=== PATIENT | female | born 1975 | race Caucasian/White ===

== ENCOUNTER 2023-04-15 19:38 | Emergency (ER) | payer MEDICAID, SELFPAY ==
[2023-04-15] VITALS (30 sets, daily range): BP systolic 102–115; BP diastolic 62–75; PULSE 70–86; RESP 12–24; TEMP 36.5; O2SAT 95–98; BMI 27.2
--- NOTE | 2023-04-15 20:00 | ED.GENADUL1 ---
HPI - General Adult General Chief complaint: Headache Stated complaint: LOW BP Time Seen by Provider: 04/15/23 19:54 Source: patient Mode of arrival: walk-in History of Present Illness HPI narrative: states she has not felt well for past 2 months. Episodes of dizziness(room spinning) associated with vomiting. Feeling light headed. No chest pain or dyspnea. Has arthritis. Today right adventism headache improved after motrin but has returned. No vomiting or fever. No neck pain or extremity weakness. States her BP has been low at home. States it was 99 top number. She takes Paxil and hydroxyzine Onset (ago): month(s) Related Data Home Medications Medication Instructions Recorded Confirmed hydroxyzine pamoate 25 mg capsule 25 mg PO DAILY PRN anxiety 04/15/23 04/15/23 medroxyprogesterone 10 mg tablet 10 mg PO DAILY 04/15/23 04/15/23 paroxetine HCl 30 mg tablet 30 mg PO DAILY 04/15/23 04/15/23 Allergies Allergy/AdvReac Type Severity Reaction Status Date / Time No Known Drug Allergies Allergy Verified 04/15/23 19:47 Review of Systems ROS Status of ROS 10 or more systems reviewed and unremarkable except as noted in history and below Exam Constitutional Vital Signs, click to edit/add: Last Vital Signs Temp 97.7 F 04/15/23 19:42 Pulse 72 04/15/23 21:04 Resp 16 04/15/23 20:52 BP 105/62 04/15/23 21:04 Pulse Ox 98 04/15/23 20:24 O2 Del Method Room Air 04/15/23 19:42 Common normals: no apparent distress, average body habitus, oriented x3, no limitations, healthy appearing, alert and well nourished Eye Common normals: PERRL, EOMs intact bilaterally and conjunctivae normal Respiratory Common normals: normal respiratory effort, no retractions, no use of accessory muscles and clear to auscultation bilaterally Cardio Common normals: regular rate, regular rhythm, S1 normal heart sound and S2 normal heart sound GI Common normals: Normal to inspection, nondistended, normoactive bowel sounds present, soft to palpation and non-tender Extremity Common normals: normal to inspection and full ROM Neuro Common normals: oriented x3, CN's II-XII intact bilaterally, moves all extremities, no focal motor deficits and no sensory deficits noted Psych Appearance: grossly normal Course Vital Signs Vital signs: Vital Signs Temperature 97.7 F 04/15/23 19:42 Pulse Rate 86 04/15/23 19:42 Respiratory Rate 14 04/15/23 19:42 Blood Pressure 115/65 04/15/23 19:42 Pulse Oximetry 97 04/15/23 19:42 Oxygen Delivery Method Room Air 04/15/23 19:42 Temperature 97.7 F 04/15/23 19:42 Pulse Rate 72 04/15/23 21:04 Respiratory Rate 16 04/15/23 20:52 Blood Pressure 105/62 04/15/23 21:04 Pulse Oximetry 98 04/15/23 20:24 Oxygen Delivery Method Room Air 04/15/23 19:42 Medical Decision Making MDM Narrative Medical decision making narrative: patient ill past couple of months. Did not feel right. described episode few weeks ago of dizziness with room spinning and vomiting. Tonight states BP 99 systolic at home. BP normal here. CT brain unremarkable. labs reveal mild hypothyroidism and pyuria. Patient given dose of Rocephin and prescribed Keflex. Headache treated with benadryl and reglan and nearly gone prior to discharge. Discharge home and advised to follow up with PCP Lab Data Labs: Lab Results 04/15/23 04/15/23 Range/Units 20:25 20:28 WBC 11.1 H (4.0-11.0) 10^3/uL RBC 4.59 (4.20-5.40) 10^6/uL Hgb 13.8 (12.0-16.0) g/dL Hct 42.9 (36.0-48.0) % MCV 93.5 (81.0-99.0) fL MCH 30.1 (26.7-34.0) pg MCHC 32.2 (29.9-35.2) g/dL RDW 12.7 (11.0-15.0) % Plt Count 363 (150-450) 10^3/uL MPV 10.0 (9.5-13.5) fL Neut % (Auto) 41.6 L (43.0-75.0) % Lymph % (Auto) 45.3 (20.5-60.0) % [place] % (Auto) 8.8 (1.7-12.0) % Eos % (Auto) 2.6 (0.9-7.0) % Baso % (Auto) 0.8 (0.2-2.0) % Neut # (Auto) 4.6 (1.4-6.5) 10^3/uL Lymph # (Auto) 5.0 H (1.2-3.8) 10^3/uL [place] # (Auto) 1.0 H (0.3-0.8) 10^3/uL Eos # (Auto) 0.3 (0.0-0.7) 10^3/uL Baso # (Auto) 0.1 (0.0-0.1) 10^3/uL Abs Immat Gran (auto) 0.10 H (0.00-0.03) 10^3/uL Imm/Tot Granulo (auto) 0.9 H (0.0-0.5) % D-Dimer 0.45 (<=0.59) mg/L FEU Sodium 142 (136-145) mmol/L Potassium 3.9 (3.5-5.1) mmol/L Chloride 105 (98-107) mmol/L Carbon Dioxide 30.2 (21.0-32.0) mmol/L Anion Gap 10.7 BUN 21.0 H (7.0-18.0) mg/dL Creatinine 1.12 H (0.55-1.02) mg/dL Est GFR ( Amer) >60 (>=60) Est GFR (Non-Af Amer) 52 L (>=60) BUN/Creatinine Ratio 18.8 Glucose 94 (74-106) mg/dL Lactate 1.2 (0.4-2.0) mmol/L Calcium 8.9 (8.5-10.1) mg/dL Magnesium 2.2 (1.8-2.4) mg/dL Total Bilirubin 0.2 (0.2-1.0) mg/dL AST 20 (15-37) U/L ALT 28 (14-59) U/L Alkaline Phosphatase 78 (46-116) U/L Troponin I High Sens <4.0 L (4.0-51.3) pg/mL NT-Pro-B Natriuret Pep 26.0 (<=450.0) pg/mL Total Protein 6.9 (6.4-8.2) g/dL Albumin 3.5 (3.4-5.0) g/dL Globulin 3.4 g/dL Albumin/Globulin Ratio 1.0 TSH 2.408 (0.358-3.740) uIU/mL Free T4 0.74 L (0.76-1.46) ng/dL Urine Color Lt. yellow (YELLOW) Urine Clarity Clear (CLEAR) Urine pH 6.0 (5.0-9.0) Ur Specific [place] 1.025 (1.005-1.025) Urine Protein Negative (NEG/TRACE) mg/dL Urine Glucose (UA) Negative (NEGATIVE) mg/dL Urine Ketones Negative (NEGATIVE) mg/dL Urine Occult Blood Small A (NEGATIVE) Urine Nitrite Positive A (NEGATIVE) Urine Bilirubin Negative (NEGATIVE) Urine Urobilinogen 0.2 (0.2-1.0) EU/dL Ur Leukocyte Esterase Trace A (NEGATIVE) Urine RBC 2-5 A (0-2) #/HPF Urine WBC 5-10 A (NONE SEEN) #/HPF Ur Squamous Epith Cells Few A (NONE/RARE) #/LPF Urine Crystals None seen (None Seen) #/HPF Urine Bacteria Large A (NONE SEEN) #/HPF Urine Casts None seen (NONE SEEN) #/LPF Urine Mucus Small A (NONE SEEN) Ur Culture Indicated? Yes Discharge Plan Discharge Chief Complaint: Headache Clinical Impression: UTI (urinary tract infection), Headache, Hypothyroid Prescriptions / Home Meds: No Action hydroxyzine pamoate 25 mg capsule 25 mg PO DAILY PRN (Reason: anxiety) medroxyprogesterone 10 mg tablet 10 mg PO DAILY paroxetine HCl 30 mg tablet 30 mg PO DAILY Instructions: Urinary Tract Infection in Women (ED), Hypothyroidism (ED), Acute Headache (ED) Additional Instructions: follow up with physician name provided by nursing Referrals: Physician,Non-Staff, MD [Primary Care Provider] - 1 week
--- NOTE | 2023-04-15 20:03 | ECG_ITS ---
[facility] Test Date: 2023-04-15 Pat Name: DESHAUN BECKFORD Department: Room: - Gender: Female Supervisor Tower: : 1975 Requested By: [id number] Order Number: [id number] Reading MD: MARY KATE Measurements Intervals [place] Rate: 68 P: 34 CT: 160 QRS: 82 QRSD: 74 T: 71 QT: 392 QTc: 409 Interpretive Statements 1100 Sinus rhythm 9110 normal ECG No previous ECG available for comparison Electronically Signed On 04-16-2023 20:00:05 EST by MARY KATE
--- NOTE | 2023-04-15 20:03 | XR_ITS ---
The [place] [id number] Patient Name: DESHAUN BECKFORD MRN: [id number] date: 1975 Sex: F Assigned Patient Location: ER Current Patient Location: Accession/Order Number: [id number] Exam Date: 04/15/2023 20:20 Report Date: 04/15/2023 20:46 At the request of: JEFFERSON DUENAS Procedure: XR chest 1V EXAM: XR chest 1V TECHNIQUE: Single AP view chest HISTORY: weakness COMPARISON: 02/19/2016 FINDINGS: The heart and mediastinum are unremarkable. The lung hankins are clear of any acute infiltrate, effusion or mass. No acute bony abnormality. XR/XR chest 1V IMPRESSION: No acute pulmonary disease. Electronically authenticated by: GLENDY CASTAÑEDA Date: 04/15/2023 20:46
--- NOTE | 2023-04-15 20:05 | CT_ITS ---
The [address] [address] Patient Name: DESHAUN BECKFORD MRN: [id number] date: 1975 Sex: F Assigned Patient Location: ER Current Patient Location: Accession/Order Number: [id number] Exam Date: 04/15/2023 20:20 Report Date: 04/16/2023 05:50 At the request of: JEFFERSON DUENAS Procedure: CT head/brain wo con EXAM: CT head/brain wo con HISTORY: headache and hypotension. Dizziness. Lightheadedness. COMPARISON: None. TECHNIQUE: Nonenhanced CT imaging of the head was performed with sagittal and coronal reconstructions. FINDINGS: No intracranial hemorrhage, edema, mass effect or midline shift is seen. The brain parenchyma, ventricles and extra-axial CSF spaces appear within normal limits. The calvarium and imaged facial bones are intact. The paranasal sinuses and mastoid air cells appear clear. CT/CT head/brain wo con IMPRESSION: No acute intracranial abnormality. Electronically authenticated by: GULILERMO MERCEDES Date: 04/16/2023 05:50
[2023-04-15 20:38] LABS: Basophils Absolute Auto 0.1 10^3/uL (0.0-0.1); Basophils Percent Auto 0.8 % (0.2-2.0); Eosinophils Absolute Auto 0.3 10^3/uL (0.0-0.7); Eosinophils Percent Auto 2.6 % (0.9-7.0); Hematocrit 42.9 % (36.0-48.0); Hemoglobin 13.8 g/dL (12.0-16.0); Immature Granulocytes Pct Auto 0.9 % (0.0-0.5); Lymphocytes Percent Auto 45.3 % (20.5-60.0); Mean Corpuscular HGB Conc 32.2 g/dL (29.9-35.2); Mean Corpuscular Hemoglobin 30.1 pg (26.7-34.0); Mean Corpuscular Volume 93.5 fL (81.0-99.0); Monocytes Percent Auto 8.8 % (1.7-12.0); Neutrophils Absolute Auto 4.6 10^3/uL (1.4-6.5); Neutrophils Percent Auto 41.6 % (43.0-75.0); Platelet Count 363 10^3/uL (150-450); Red Blood Count 4.59 10^6/uL (4.20-5.40); Red Cell Distribution Width 12.7 % (11.0-15.0); White Blood Count 11.1 10^3/uL (4.0-11.0)
[2023-04-15 20:39] LABS: Bilirubin Urine NEGATIVE (NEGATIVE); Blood Urine SMALL (NEGATIVE); Clarity Urine CLEAR (CLEAR); Color Urine LT. YELLOW (YELLOW); Glucose Urine UA NEGATIVE (NEGATIVE); Ketones Urine NEGATIVE (NEGATIVE); Leukocyte Esterase Urine TRACE (NEGATIVE); Nitrite Urine POSITIVE (NEGATIVE); Protein Urine NEGATIVE (NEG/TRACE); Specific Gravity Urine 1.025 (1.005-1.025); Urobilinogen Urine 0.2 EU/dL (0.2-1.0)
[2023-04-15] MEDS: 0.9 % SODIUM CHLORIDE 1,000 ML 999 ML IV (20:43)
[2023-04-15 20:46] LABS: Urine Microscopic Indicated YES
[2023-04-15 20:49] LABS: Bacteria Urine LARGE #/HPF (NONE SEEN); Cast Seen? NONE SEEN #/LPF (NONE SEEN); Crystals Seen? None Seen #/HPF (None Seen); Mucus Urine SMALL (NONE SEEN); Squamous Epithelial Cell Urine FEW #/LPF (NONE/RARE); Urine Culture Indicated YES
[2023-04-15 20:54] LABS: D Dimer 0.45 mg/L FEU (<=0.59)
[2023-04-15 21:00] LABS: Lactate/Lactic Acid 1.2 mmol/L (0.4-2.0)
[2023-04-15 21:06] LABS: Alanine Aminotransferase 28 U/L (14-59); Albumin Level 3.5 g/dL (3.4-5.0); Alkaline Phosphatase 78 U/L (46-116); Anion Gap 10.7; Aspartate Amino Transferase 20 U/L (15-37); BUN Creatinine Ratio 18.8; Bilirubin Total 0.2 mg/dL (0.2-1.0); Calcium 8.9 mg/dL (8.5-10.1); Carbon Dioxide 30.2 mmol/L (21.0-32.0); Chloride 105 mmol/L (98-107); Estimated GFR (African America >60 (>=60); Estimated GFR (Non-African Ame 52 (>=60); Globulin 3.4 g/dL; Glucose 94 mg/dL (74-106); Magnesium 2.2 mg/dL (1.8-2.4); Potassium 3.9 mmol/L (3.5-5.1); Sodium 142 mmol/L (136-145); Thyroid Stimulating Hormone 2.408 uIU/mL (0.358-3.740); Total Protein 6.9 g/dL (6.4-8.2); Troponin I High Sensitivity <4.0 pg/mL (4.0-51.3)
[2023-04-15 21:08] LABS: Free T4 0.74 ng/dL (0.76-1.46)
[2023-04-15] MEDS: CEFTRIAXONE 1,000 MG in 0.9 % SODIUM CHLORIDE 50 ML 100 MG IV (22:34)
[2023-04-15] MEDS: METOCLOPRAMIDE HCL 10 MG/2 ML VIAL IVP (22:35)
[2023-04-15] MEDS: DIPHENHYDRAMINE HCL 50 MG/ML (1ML) VIAL IV (22:35)
== END 2023-04-15 23:35 | disposition home or self-care (01) ==
PROVIDERS: Emergency Provider Internal Medicine
DX: R51.9 Headache, unspecified (principal); N39.0 Urinary tract infection, site not specified; E03.9 Hypothyroidism, unspecified; Z79.899 Other long term (current) drug therapy
CPT/HCPCS: 36415; 70450; 71045; 80053; 81001; 83605; 83735; 83880; 84439; 84443; 84484; 85025; 85378; 87086; 87150; 87186; 93005; 96361; 96365; 96375; 99285

== ENCOUNTER 2024-05-13 19:34 | Outpatient (OUT) | payer MEDICAID, SELFPAY ==
--- OUTSIDE RECORDS SUMMARY | 2024-05-13 19:37 | XMS_ITS | CCD ---
Author Organization [facility] Inform ion Partnership [facility] Care Team Providers Care Exchange Trouble Shooter Name Role Phone MARY PERALTA Referring Unavailable MARY PERALTA Primary Care Unavailable FREDDIE HILLMAN Admitting Unavailable FREDDIE HILLMAN Attending Unavailable BRIAN SUH Unavailable Unavailable Primary Care Provider UnavailNEETA Romano Primary Care Unavailable JANY UMANZOR Attending Unavailable Jeremie Emery Attending Unavailab le Jeremie Emery Admitting Unavailab le NON STAFF Primary Care Unavailable BRYAN JONES Referring Unavailable FURLONG, BRYAN Guzman Primary Care Unavailable Lurdeslong Bryan BLAIR Primary Care Provider BRYAN JONES Attending Unavailable LURDESLONGBRYAN Primary Care Unavailable FURLOBRYAN WEBSTER Attending Unavailable FURLONGBRYAN Referring Unavailable FURLONG, BRYAN Guzman Primary Care Unavailable FURLONGBRYAN Attending Unavailable FURLONGBRYAN Primary Care Unavailable FURLONG, BRYAN Guzman Attending Unavailable FURLONGBRYAN Referring Unavailable FURLONG, BRYAN Guzman Primary Care Unavailable DONAVAN SAMS Attending Unavailable BRYAN JONES Referring Unavailable FURLONG, BRYAN Guzman Primary Care Unavailable FURLONG, BRYAN Guzman Attending Unavailable FURLONG, BRYAN Guzman Referring Unavailable FURLONG, BRYAN Guzman Primary Care Unavailable FURLONG, BRYAN Guzman Referring Unavailable FURLONG, BRYAN G Primary Care Unavailable SUGAR BASILIO Attending Unavailable NO PCP, NO PCP Primary Care Unavailable FURLOBRYAN WEBSTER Attending Unavailable FURLONGBRYAN Referring Unavailable BRYAN JONES Primary Care Unavailable DONAVAN SAMS Referring Unavailable BRYAN JONES Primary Care Unavailable Allergies Allergy Classification Reported Allergen(s) Allergy Type Date of Onset Reaction(s) Facility (9 sources) Penicillins; Translations: [PENICILLINS] Propensity to adverse reactions to drug (disorder) Hives [facility] Medications Current Medications Medication Drug Class(es) Dates Sig (Normalized) Sig (Original) acetaminophen 325 mg / HYDROcodone bitartrate 5 mg oral tablet (1 source) Opioid Agonist Start: 05-04-2023 End: 05-07-2023 HYDROcodone-acetam inophen (NORCO) 5-325 MG per tablet Indications: Pain, dental , Dental abscess , Dental caries Take 1 tablet by mouth every 6 hours as needed for Pain for up to 3 days. Intended supply: 3 days. Take lowest dose possible to manage pain Max Daily Amount: 4 tablets 12 tablet 0 05/04/2023 05/07/2023 Active 24 hr amphetamine aspartate 6.25 mg / amphetamine sulfate 6.25 mg / dextroamphetamine saccharate 6.25 mg / dextroamphetamine sulfate 6.25 mg extended release oral capsule (9 sources) Central Nervous System Stimulant Start: 05-01-2024 take 1 capsule by mouth once daily in the morning amphetamine-dextro amphetamine XR (ADDERALL XR) 25 mg 24 hr capsule Indications: Attention deficit hyperactivity disorder (ADHD), unspecified ADHD type Take 1 capsule (25 mg total) by mouth every morning. Max Daily Amount: 25 mg 30 capsule 05/01/2024 Active Start: 04-02-2024 take 1 capsule by [facility] once daily in the morning amphetamine-dextroamphetamine XR (ADDERA LL XR) 25 mg 24 hr capsule Indications: Attention deficit hyperactivity disorder (ADHD), unspecified ADHD type Take 1 capsule (25 mg total) by mouth every morning. Max Daily Amount: 25 mg 04/02/2024 Active Start: 02-01-2024 End: 04-02-2024 take 1 capsule by mouth once daily in the morning amphetamine-dextroamphetamine XR (ADDERA LL XR) 20 mg 24 hr capsule Indications: Attention deficit hyperactivity disorder (ADHD), unspecified ADHD type Take 1 capsule (20 mg total) by mouth every morning. Max Daily Amount: 20 mg 30 capsule 04/01/2024 04/02/2024 Discontinued (Dose adjustment) brexpiprazole 0.5 mg oral tablet (1 source) Atypical Antipsychotic Start: 11-28-2019 REXULTI 0.5 MG TABS tablet One tablet at night 0 11/28/2019 Active busPIRone hydrochloride 10 mg oral tablet (1 source) Start: 11-28-2019 busPIRone (BUSPAR) 10 MG tablet Take one tablet at night 0 11/28/2019 Active hydrOXYzine hydrochloride 25 mg oral tablet (6 sources) Antihistamine take 1 tablet by mouth three times daily as needed hydrOXYzine (ATARAX) 25 mg tablet Take 1 tablet (25 mg total) by mouth 3 (three) times a day as needed for itching. Active ibuprofen 800 mg oral tablet (1 source) Nonsteroidal Anti-inflammatory Drug Start: 05-04-2023 take 1 tablet by mouth every eight hours as needed for pain ibuprofen (IBU) 800 MG tablet Take 1 tablet by mouth every 8 hours as needed for Pain 21 tablet 0 05/04/2023 Active medroxyPROGESTERone acetate 5 mg oral tablet (1 source) Progestin Start: 11-14-2019 take 2 tablets by mouth once daily medroxyPROGESTERone (PROVERA) 5 MG tablet TAKE 2 TABLETS BY MOUTH EVERY DAY 0 11/14/2019 Active meloxicam 15 mg oral tablet (9 sources) Nonsteroidal Anti-inflammatory Drug Start: 05-06-2024 take 1 tablet by mouth once daily as needed for pain meloxicam (MOBIC) 15 mg tablet Take 1 tablet (15 mg total) by mouth daily as needed for pain. 30 tablet 2 05/06/2024 Active Start: 10-23-2023 End: 05-03-2024 take 1 tablet by mouth once daily as needed for pain meloxicam (MOBIC) 15 mg tablet Take 1 tablet (15 mg total) by mouth daily as needed for pain. 30 tablet 2 04/02/2024 05/03/2024 Discontinued (Reorder) Start: 12-18-2019 End: 05-04-2023 take 1 tablet by mouth once daily meloxicam (MOBIC) 7.5 MG tablet Indications: Acute hip pain, left Take 1 tablet by mouth daily 30 tablet 3 12/18/2019 05/04/2023 Discontinued (LIST CLEANUP) PARoxetine hydrochloride 30 mg oral tablet (6 sources) Serotonin Reuptake Inhibitor Start: 10-23-2023 PARoxetine (PAXIL) 3 0 mg tablet 10/23/2023 Active propranolol hydrochloride 10 mg oral tablet (6 sources) beta-Adrenergic [place] Start: 10-23-2023 End: 05-09-2024 propranoloL (INDERAL) 10 mg tablet Take 1 tablet (10 mg total) by mouth. 10/23/2023 05/09/2024 Discontinued (Patient Stopped On Own) risperiDONE 2 mg oral tablet (1 source) Atypical Antipsychotic Start: 11-23-2019 risperi DONE (RISPERDAL) 2 MG tablet Take one tablet at night 0 11/23/2019 Active triamcinolone acetonide 1 mg/ml topical cream (6 sources) Corticosteroid Start: 10-10-2023 triamcinolone (KENALOG) 0.1 % cream APPLY A THIN FILM TO THE AFFECTED SKIN AREAS BY TOPICAL ROUTE 2-3 TIMES A DAY NEEDED 10/10/2023 Active vilazodone hydrochloride 40 mg oral tablet (1 source) Start: 11-25-2019 VILAZODONE HCL 40 MG Tablet Completed/Discontinued Medications Medication Drug Class(es) Dates Sig (Normalized) Sig (Original) penicillin v potassium 250 mg oral tablet (2 sources) Start: 05-04-2023 End: 05-04-2023 penicillin v potassium (VEETID) tablet 500 mg Start: 05-04-2023 End: 05-11-2023 take 1 tablet by mouth four times daily penicillin v potassium (VEETID) 500 MG tablet Take 1 tablet by mouth 4 times daily for 7 days 28 tablet 0 05/04/2023 05/11/2023 Active Problems Active Problems Problem Classification Problem Date Documented Date Episodic/Chronic Anxiety disorders (19 sources) Post-traumatic stress disorder, unspecified; Translations: [Panic disorder [episodic paroxysmal anxiety]] Onset: 12-01-2021 Chronic Attention-deficit, conduct, and disruptive behavior disorders (2 sources) Attention-deficit hyperactivity disorder, predominantly inattentive type; Translations: [Attention-deficit hyperactivity disorder. predominantly inattentive type] Onset: 12-01-2021 Chronic Attention-deficit, conduct, and disruptive behavior disorders (9 sources) Attention deficit hyperactivity disorder; Translations: [Attention-deficit hyperactivity disorder, unspecified type] 09-26-2023 Chronic Attention-deficit, conduct, and disruptive behavior disorders (1 source) Attention-deficit hyperactivity disorder, unspecified type; Translations: [Attention-deficit hyperactivity disorder, unspecified type] Onset: 09-26-2023 Chronic Disorders of teeth and jaw (6 sources) Toothache; Translations: [Other specified disorders of teeth and supporting structures] Onset: 05-04-2023 05-04-2023 Episodic Menopausal disorders (4 sources) Menopausal and female climacteric states; Translations: [Postmenopausal bleeding] Onset: 09-26-2023 05-09-2024 Chronic Menstrual disorders (6 sources) Irregular periods; Translations: [Irregular menstruation, unspecified] Onset: 05-26-2016 05-26-2016 Chronic Mood disorders (2 sources) Bipolar II disorder; Translations: [Bipolar II disorder] Onset: 12-01-2021 Chronic Osteoarthritis (8 sources) Osteoarthritis of right hip joint; Translations: [Unilateral primary osteoarthritis, right hip] Onset: 10-23-2023 04-02-2024 Chronic Other skin disorders (2 sources) Epidermoid cyst; Translations: [Epidermal cyst] 05-09-2024 Episodic Other skin disorders (1 source) Epidermal cyst; Translations: [Epidermal cyst] Onset: 05-09-2024 Episodic Substance-related disorders (4 sources) Nicotine dependence, unspecified, uncomplicated; Translations: [Smoker] Onset: 12-01-2021 Chronic Thyroid disorders (2 sources) Hypothyroidism, unspecified; Translations: [Hypothyroidism, unspecified] Onset: 09-26-2023 Chronic Unclassified (1 source) Gynecologic Exam Onset: 05-09-2024 Unclassified (1 source) New Patient Onset: 09-26-2023 Unclassified (2 sources) Senior Living Clearance Onset: 07-07-2023 Past or Other Problems Problem Classification Problem Date Documented Da te Episodic/Chronic Malaise and fatigue (1 source) Fatigue; Translations: [Other fatigue] Onset: 12-18-2019 12-18-2019 Episodic Mood disorders (6 sources) Mood disorders Onset: 12-28-2023 12-28-2023 Other gastrointestinal disorders (2 sources) Other intra-abdominal and pelvic swelling, mass and lump; Translations: [Other intra-abdominal and pelvic swelling, mass and lump] Onset: 12-28-2023 Episodic Other non-traumatic joint disorders (1 source) Hip pain; Translations: [Pain in left hip] Onset: 12-18-2019 12-18-2019 Episodic Other non-traumatic joint disorders (1 source) Pain in left hip; Translations: [Pain in left hip] Onset: 09-26-2023 Episodic Other non-traumatic joint disorders (1 source) Pain in right hip; Translations: [Pain in right hip] Onset: 09-28-2023 Episodic Other screening for suspected conditions (not mental disorders or infectious disease) (13 sources) Patient encounter status; Translations: [Encounter for screening for lipoid disorders] Onset: 05-27-2016 Resolved: 01-17-2020 01-17-2020 Episodic Other skin disorders (1 source) Other seborrheic keratosis; Translations: [Other seborrheic keratosis] Onset: 12-28-2023 Episodic Skin and subcutaneous tissue infections (6 sources) Pustule ; Translations: [Local infection of the skin and subcutaneous tissue, unspecified] Onset: 04-19-2017 04-19-2017 Episodic Spondylosis; intervertebral disc disorders; other back problems (1 source) Lumbar radiculopathy; Translations: [Radiculopathy, lumbar region] Onset: 12-18-2019 12-18-2019 Episodic Unclassified (1 source) Patient encounter status 05-09-2024 Results Test Name Value Interpretation Reference Range Facil ity CHLAMYDIA/GC PCR, FLon 05-09 CHLAMYDIA/GC PCR, FL CHLAMYDIA PCR, FL Negative (qualifier value) Chlamydia trachomatis not detected by nucleic acid amplification. This does not exclude the possibility of infection because results are dependent on adequate specimen collection. GONORRHOEAE PCR, FL Negative (qualifier value) Neisseria gonorrhoeae not detected by nucleic acid amplification. This does not exclude the possibility of infection because results are dependent on adequate specimen collection. [facility] Comment on above: Performed By: #### [facility] #### [facility] ([id number]) [address] [place] [address], [address] [place] [address] HIGH RISK HPV W/GENOon 05-09 HPV 31+33+35+39+45+51+5 2+56+58+59+66+68 DNA BRANDON+probe Ql (Cvx) HPV SPECIMEN TYPE ThinPrep HPV 16 Negative (qualifier value) HPV 18 Negative (qualifier value) OTHER HIGH RISK HPV Negative (qualifier value) HPV types 31,33,35,39,45,52,56, 58,59,66 and 68 DNA were undetectable. Normal [facility] Comment on above: Performed By: #### 7 1431-1 #### [facility] ([id number]) [address] [facility], [place] [address] [facility] ([id number]) [address], [address] [place] [address] US EXT NON-VASC RT LIMITEDon 01-17-2024 US EXT NON-VASC RT LIMITED US EXT NON-VASC RT LIMITED Ultrasound right lower extremity limited HISTORY: Tender right groin mass for one month, inguinal mass, right groin nodule. COMPARISON: Right hip and pelvis radiographs 09/28/2023 TECHNIQUE: Ultrasound performed over the patient directed area of palpable concern. IMPRESSION: 1. There are multiple hypoechoic ovoid structures with central hyper echogenicity consistent with prominent but nonenlarged lymph nodes with normal morphology. The largest lymph node measures 2.5 cm in length but only 0.5 cm short axis, and is not enlarged by size criteria. These findings are nonspecific. Clinical follow-up to ensure resolution is recommended. 2. Scanning of the left groin was performed for comparison, also demonstrating mildly prominent but nonenlarged left inguinal lymph nodes. 3. No evidence for a mass or fluid collection in the visualized soft tissues. 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 TECHNIQUE Bilateral digital tomosynthesis MLO and CC views of the breasts were obtained, with creation of synthetic 2D views. Computer aided detection was utilized. FINDINGS: There are scattered areas of fibroglandular density. There are no suspicious masses, calcifications, or areas of architectural distortion. IMPRESSION: No mammographic evidence of malignancy. BI-RADS: BI-RADS 1 - Negative Recommendation: Routine screening mammogram in 1 year. Finalized by Anselmo Santos MD on 10/05/2023 10:58 AM 1 b MAMM 1 YR [facility] XR HIP RT 2-3 VIEWS W OR WO PELVISon 09-28-2023 XR HIP RT 2-3 VIEWS W OR WO PELVIS XR HIP RT 2-3 VIEWS W OR WO PELVIS HISTORY: A 48-year-old female with the history of the chronic right hip pain. TECHNIQUE: AP view of pelvis with right hip: 3 views COMPARISON: Comparison is made with the AP view of pelvis with left hip of 12/27/2019. FINDINGS: There is no evidence of fracture, dislocation or acute bony pathology. There are mild degenerative changes in the lower lumbar spine. Both sacroiliac joints are intact. Both ischio-pubic rami are intact. There are moderate to severe osteoarthritic changes in the both hip joints in symmetrical fashion. There is no evidence of osteolytic or osteoblastic bony destructive pathology. IMPRESSION: * Moderate to severe osteoarthritis involving the both hip joints in symmetrical fashion. * Mild degenerative arthritis in the lower lumbar spine. * No evidence of fracture, bony destruction or acute bony pathology. Finalized by Carlos Figueroa MD on 09/28/2023 4:00 PM [facility] COMPREHENSIVE METABOLIC PANE Peter 09-26-2023 Albumin [Mass/Vol] 4.3 g/dL Normal 3.2-5.3 [facility] Comment on above: Performed By: #### C , 10339-3, 11325-7, 2243-4, 32214-4 #### [facility] ([id number]) [address], [address] [place] [address] ALP [Catalytic activity/Vol] 61 U/L Normal 39-130 [facility] Comment on above: Performed By: #### C , 98449-6, 97033-9, 2243-4, 19311-5 #### [facility] ([id number]) [address], [address] [place] [address] ALT [Catalytic activity/Vol] 12 U/L Normal 0-31 [facility] Comment on above: Performed By: #### C ARACELY, 12667-8, 81199-4, 2243-4, 23248-1 #### [facility] ([id number]) [address], [address] [place] [address] Anion gap [Moles/Vol] 11 mmol/L Normal 5-15 [facility] Comment on above: Performed By: #### C ARACELY, 67997-5, 02456-6, 2243-4, 03572-2 #### [facility] ([id number]) [address], [address] [place] [address] AST [Catalytic activity/Vol] 14 U/L Normal 0-41 [facility] Comment on above: Performed By: #### C ARACELY, 70882-9, 68395-7, 2243-4, 57216-5 #### [facility] ([id number]) [address], [address] [place] [address] Bilirubin [Mass/Vol] 0.4 mg/dL Normal 0.3-1.2 [facility] Comment on above: Performed By: #### C ARACELY, 79645-8, 77621-7, 2243-4, 35763-4 #### [facility] ([id number]) [address], [address] [place] [address] Calcium [Mass/Vol] 10.2 mg/dL Normal 8.5-10.5 [facility] Comment on above: Performed By: #### C ARACELY, 14413-4, 64501-8, 2243-4, 86165-2 #### [facility] ([id number]) [address], [address] [place] [address] Chloride [Moles/Vol] 106 mmol/L Normal 98-109 [facility] Comment on above: Performed By: #### C ARACELY, 18511-4, 64246-3, 2243-4, 02651-4 #### [facility] ([id number]) [address] [address] [place] [address] CO2 [Moles/Vol] 25 mmol/L Normal 22-32 [facility] Comment on above: Performed By: #### C ARACELY, 19124-9, 41913-2, 2243-4, 81906-2 #### [facility] ([id number]) [address], [facility] [address] [place] [address] Creatinine [Mass/Vol] 0.95 mg/dL Normal 0.40-1.00 [facility] Comment on above: Result Comment: METH OD TRACEABLE TO IDMS STANDARD Performed By: #### C ARACELY, 88829-8, 26977-8, 2243-4, 06870-2 #### [facility] ([id number]) [address] [address] GFR/1.73 sq M.predicted among non-blacks MDRD (S/P/Bld) [Vol rate/Area] 74 mL/min/{1.73_m2} Normal >59 [facility] Comment on above: Result Comment: Reported eGFR is based on the CKD-EPI 2020 equation that does not use a race coefficient. Performed By: #### C ARACELY, 37434-7, 65795-1, 2243-4, 36588-9 #### [facility] ([id number]) [address], [facility] [address] [place] [address] Glucose [Mass/Vol] 91 mg/dL Normal 65-99 [facility] Comment on above: Performed By: #### C ARACELY, 45987-9, 04744-6, 2243-4, 49958-5 #### [facility] ([id number]) [address] [address] [place] [address] Potassium [Moles/Vol] 4.6 mmol/L Normal 3.5-5.0 [facility] Comment on above: Performed By: #### C ARACELY, 34640-9, 77855-2, 2243-4, 23265-4 #### [facility] ([id number]) [address], [address] [place] [address] Protein [Mass/Vol] 6.9 g/dL Normal 6.0-8.0 [facility] Comment on above: Performed By: #### Quintin JESSICA, 96798-0, 44859-7, 2243-4, 34261-0 #### [facility] ([id number]) [address], [address] [place] [address] Sodium [Moles/Vol] 142 mmol/L Normal 134-146 [facility] Comment on above: Performed By: #### Quintin JESSICA, 33812-2, 92208-3, 2243-4, 91215-1 #### [facility] ([id number]) [address], [address] [place] [address] Urea nitrogen [Mass/Vol] 12 mg/dL Normal 5-23 [facility] Comment on above: Performed By: #### Quintin JESSICA, 53868-7, 81135-8, 2243-4, 12675-5 #### [facility] ([id number]) [address], [address] [place] [address] E2 [Mass/Vol]on 09-26-2023 ESTRADIOL <15.0 Normal [facility] Comment on above: Result Comment: NON- FEMALES Mid follicular: 25-115 pg/mL Ovulatory Peak: 32.1-517 pg/mL Mid Luteal: 36.5-246 pg/mL Post-Menopausal Females: <15.0-25.1 pg/mL (Not on hormone therapy) The Access Sensitive Estradiol assay results are not intended to be used to measure the effectiveness of exogeneous Estradiol supplementation, for example, when the patient is on hormone replacement therapy. The presence of estradiol drug analogues and their metabolites could have an impact on estradiol recovery when using this assay. Performed By: #### C ARACELY, 13349-2, 26416-5, 2243-4, 28811-8 #### [facility] ([id number]) [address], [address] [place] [address] Follitropin Qnon 09-26-2023 FOLLICLE STIM HORMONE 71.7 mIU/mL Normal [facility] Comment on above: Result Comment: NORMAL FEMALE Luteal 1.8-5.1 mIU/mL Follicular 3.8-8.8 mIU/mL Mid Cycle 4.5-22.5 mIU/mL [facility] 16.7-113.6 mIU/mL Performed By: #### C ARACELY, 94569-5, 53461-9, 2243-4, 60433-4 #### [facility] ([id number]) [address], [address] [place] [address] Lipid 1996 panelon Cholesterol [Mass/Vol] 137 mg/dL Low 150-200 [facility] Comment on above: Performed By: #### Quintin JESSICA, 91906-0, 30487-2, 2243-4, 32030-2 #### [facility] ([id number]) [address], [address] [place] [address] Cholesterol in HDL [Mass/Vol] 74 mg/dL Normal >39 [facility] Comment on above: Result Comment: HDL <40 mg/dL - High Risk HDL > or = 40mg/dL- Desirable HDL >60 mg/dL - Negative Risk Performed By: ###[place], [address]-0, 16009-9, 2243-4, 33305-8 #### [facility] ([id number]) [address], [address] [place] [address] Cholesterol in LDL [Mass/Vol] 48 mg/dL Normal <130 [facility] Comment on above: Result Comment: LDL <100 mg/dL - Desirable LDL >160 mg/dL - High Risk Performed By: ###[place], [address]-5, 58185-9, 2243-4, 08367-2 #### [facility] ([id number]) [address], [address] [place] [address] Cholesterol in VLDL [Mass/Vol] 15 mg/dL Normal 0-30 [facility] Comment on above: Performed By: #### Quintin JESSICA, 42278-7, 07212-3, 2243-4, 60558-4 #### [facility] ([id number]) [address], [address] [place] [address] CHOLESTEROL:HDL 1.9 Normal 1.0-5.0 [facility] Comment on above: Performed By: #### Quintin JESSICA, 36711-5, 22643-8, 2243-4, 73180-5 #### [facility] ([id number]) [address], [address] [place] [address] Triglyceride [Mass/Vol] 73 mg/dL Normal 27-150 [facility] Comment on above: Performed By: #### Quintin JESSICA, 02606-9, 53649-8, 2243-4, 93669-4 #### [facility] ([id number]) [address], [address] [place] [address] Lutropin Qnon 09-26-2023 LUTEINIZING HORMONE 52.7 mIU/mL Normal [facility] Comment on above: Result Comment: NORMAL FEMALE Follicular 2.1-10.9 mIU/mL Mid Cycle 19.2-103 mIU/mL Luteal 1.2-12.9 mIU/mL [facility] 10.9-58.6 mIU/mL Performed By: #### [place], 71798-9, 69876-4, 2243-4, 12016-4 #### [facility] ([id number]) [address], [address] [place] [address] TSH Qnon 09-26-2023 TSH 1.59 uIU/mL Normal 0.49-4.67 [facility] Comment on above: Performed By: #### 3 016-3 #### [facility] ([id number]) [address], [address] [place] [address] Hemoglobin A1Con 12-19-2019 HbA1c (Bld) [Mass fraction] 5.1 % Normal 4.0-6.0 [facility] Comment on above: Performed By: #### G LUF, LIPR, TSH, GLYHGB #### [address] [place], [place] [id number] Photograph Finisher: Saad Mercedes MD HbA1c (Bld) [Mass fraction] 100 mg/dL Normal [facility] Comment on above: Result Comment: The ADA and AACC recommend providing the estimated average glucose result to permit better patient understanding of their HBA1c result. Performed By: #### G LUF, LIPR, TSH, GLYHGB #### [facility] [address] [place] [address] Photograph Finisher: Saad Mercedes MD Glucose, Fastingon 0 Glucose [Mass/Vol] 85 mg/dL Normal 70-99 [facility] [facility] Comment on above: Performed By: #### G LUF, LIPR, TSH, GLYHGB #### [employer] [address] [place] [address] [phone] Photograph Finisher: Saad Mercedes MD Lipid Profileon 12-18-2019 Cholesterol [Mass/Vol] 140 mg/dL Normal <200 [facility] Comment on above: Result Comment: Cholesterol Guidelines: <200 Desirable 200-240 Borderline >240 Undesirable Performed By: #### G LUF, LIPR, TSH, GLYHGB #### [facility] [address] [place] [address] [phone] Photograph Finisher: Saad Mercedes MD Cholesterol in HDL [Mass/Vol] 61 mg/dL Normal >40 [facility] Comment on above: Result Comment: HDL Guidelines: <40 Undesirable 40-59 Borderline >59 Desirable Performed By: #### G LUF, LIPR, TSH, GLYHGB #### [employer] [facility] [address] [place] [address] [phone] Photograph Finisher: Saad Mercedes MD Cholesterol in LDL [Mass/Vol] 64 mg/dL Normal 0-130 [facility] Comment on above: Result Comment: LDL Guidelines: <100 Desirable 100-129 Near to/above Desirable 130-159 Borderline >159 Undesirable Direct (measured) LDL and calculated LDL are not interchangeable tests. Performed By: #### G LUF, LIPR, TSH, GLYHGB #### [employer] [address] [place] [phone] Photograph Finisher: Saad Mercedes MD Cholesterol.total/C holesterol in HDL [Mass ratio] 2.3 {ratio} Normal <5 [facility] Comment on above: Performed By: #### G LUF, LIPR, TSH, GLYHGB #### [employer] [address] [place] [phone] Photograph Finisher: Saad Mercedes MD Triglyceride [Mass/Vol] 74 mg/dL Normal <150 [facility] Comment on above: Result Comment: Triglyceride Guidelines: <150 Desirable 150-199 Borderline 200-499 High >499 Very high Based on AHA Guidelines for fasting triglyceride, February 2012. Performed By: #### G LUF, LIPR, TSH, GLYHGB #### [employer] [address] [place], [place] [id number] Photograph Finisher: Saad Mercedes MD Cholesterol in VLDL [Mass/Vol] NOT REPORTED Normal 06-13 [facility] Comment on above: Performed By: #### G LUF, LIPR, TSH, GLYHGB #### [employer] [address] [place], [place] [phone] Photograph Finisher: Saad Mercedes MD Thyroid Stim. Horm.on 2019 TSH Qn 1.66 m[IU]/L Normal 0.30-5.00 [facility] Comment on above: Performed By: #### G LUF, LIPR, TSH, GLYHGB #### [employer] [address] [place], [place] [phone] Photograph Finisher: Saad Mercedes MD Vital Signs Date Time Vital Sign Value Performing Clinician Duane penny 05-09-2024 10:42-0500 Body height 162.6 cm Donavan Sams NURSING CLERKLet's Talk [facility] 05-09-2024 10:42-0500 Body mass index (BMI) [Ratio] 25.51 kg/m2 Donavan Sams NURSING CLERKLet's Talk Work Phone: [facility] 05-09-2024 10:42-0500 Body temperature 97.7 [degF] Donavan Sams NURSING CLERKLet's Talk Work Phone: [facility] 05-09-2024 10:42-0500 Body weight 67.41 kg Donavan Sams [employer] Work Phone: [facility] 05-09-2024 10:42-0500 Diastolic blood pressure 50 mm[Hg] Donavan Sams NURSING CLERK-[employer] Work Phone: [facility] [employer] [facility] 05-09-2024 10:42-0500 Heart rate 90 /min Donavan Sams NURSING CLERK-[employer] TOP HEL[employer] Work Phone: [facility] [employer] [facility] 05-09-2024 10:42-0500 Respiratory rate 18 /min Donavan Sams NURSING CLERK-[employer] TOP HELPER Work Phone: [facility] 05-09-2024 10:42-0500 SaO2% (BldA) [Mass fraction] 98 % Donavan Sams NURSING CLERK-[employer] TOP HELPER Work Phone: [facility] [employer] [facility] 05-09-2024 10:42-0500 Systolic blood pressure 90 mm[Hg] Donavan Sams NURSING CLERK-[employer] TOP HELPER Work Phone: [facility] [employer] [facility] 04-02-2024 17:20-0500 Body mass index (BMI) [Ratio] 22.49 kg/m2 Bryan Furlong DO Work Phone: [facility] [employer] [facility] 04-02-2024 17:20-0500 Body weight 59.42 kg Bryan Furlong DO Work Phone: [facility] [employer] [facility] 04-02-2024 17:20-0500 Diastolic blood pressure 48 mm[Hg] Bryan Furlong DO Work Phone: [facility] [employer] [facility] 04-02-2024 17:20-0500 Heart rate 60 /min Bryan Furlong DO Work Phone: [facility] [employer] [facility] 04-02-2024 17:20-0500 Systolic blood pressure 114 mm[Hg] Bryan Furlong DO Work Phone: [facility] [employer] [facility] 05-04-2023 17:16-0500 Diastolic blood pressure 65 mm[Hg] Jany Christina DO Work Phone: [facility] 05-04-2023 17:16-0500 Heart rate 94 /min Jany Christina DO Work Phone: [facility] 05-04-2023 17:16-0500 Respiratory rate 16 /min Jany Umanzor DO Work Phone: [facility] 05-04-2023 17:16-0500 SaO2% (BldA) [Mass fraction] 97 % Jany Umanzor DO Work Phone: [facility] 05-04-2023 17:16-0500 Systolic blood pressure 98 mm[Hg] Jany Umanzor DO Work Phone: [facility] 05-04-2023 17:13-0500 Body height 162.6 cm Jany Umanzor DO Work Phone: [facility] 05-04-2023 17:13-0500 Body mass index (BMI) [Ratio] 27.46 kg/m2 Jany Umanzor DO Work Phone: [facility] 05-04-2023 17:13-0500 Body temperature 97.7 [degF] Jany Umanzor DO Work Phone: [facility] 05-04-2023 17:13-0500 Body weight 72.58 kg Jany Umanzor DO Work Phone: [facility] Encounters Encounter Date Encounter Type Care Provider Facility Start: 05-09-2024 End: 05-09-2024 Office outpatient visit 25 minutes Donavan Sams APRN-[employer] TOP HELPER Work Phone: [facility] Comment on above: Encounter for gyneco logical examination without abnormal finding (Primary Dx); Post-menopausal bleeding; Primary osteoarthritis of right hip; Smoker; Epidermoid cyst; Skin cancer screening Start: 05-09-2024 End: 05-09-2024 Patient encounter status Donavan Sams NURSING CLERK-[employer] TOP HELPER Work Phone: [facility] Start: 05-09-2024 End: 05-09-2024 ambulatory DONAVAN L LATRELL [facility] Start: 05-09-2024 End: 05-09-2024 ambulatory DONAVAN SAMS [facility] Start: 05-09-2024 Encounter for gynecological examination (general) (routine) without abnormal findings [facility] Start: 05-03-2024 End: 05-06-2024 Refill Bryan Jones DO Work Phone: [facility] Start: 04-02-2024 End: 04-02-2024 Office outpatient visit 15 minutes Bryan Jones DO Work Phone: [facility] Comment on above: Attention deficit hy peractivity disorder (ADHD), unspecified ADHD type (Primary Dx); Anxiety; Primary osteoarthritis of right hip Start: 04-02-2024 End: 04-02-2024 ambulatory [facility] Start: 03-31-2024 End: 04-01-2024 Refill Bryan Jones DO Work Phone: [facility] Comment on above: Attention deficit hy peractivity disorder (ADHD), unspecified ADHD type Start: 02-27-2024 End: 02-28-2024 Refill Bryan Jones DO Work Phone: [facility] Comment on above: Attention deficit hy peractivity disorder (ADHD), unspecified ADHD type Start: 02-21-2024 End: 02-22-2024 Telephone encounter [facility] Start: 01-17-2024 End: 01-17-2024 ambulatory [facility] Start: 12-28-2023 End: 12-28-2023 ambulatory [facility] Start: 10-23-2023 End: 10-23-2023 ambulatory [facility] Start: 10-05-2023 End: 10-05-2023 ambulatory [facility] Start: 09-28-2023 End: 09-28-2023 ambulatory PUNTA GORDA Jessie [facility] Start: 09-26-2023 End: 09-27-2023 ambulatory PUNTA GORDA Jessie [facility] Start: 09-26-2023 Encounter for genera l adult medical examination without abnormal findings [facility] Start: 09-26-2023 End: 09-26-2023 ambulatory PUNTA GORDA Jessie [facility] Start: 09-26-2023 Encounter for genera l adult medical examination without abnormal findings [facility] Start: 07-07-2023 ambulatory Jeremie Klein acility:[facility] Start: 07-07-2023 End: 07-07-2023 Emergency department patient visit [facility] Start: 07-07-2023 Encounter for other general examination [facility] Start: 05-04-2023 End: 05-04-2023 Emergency department patient visit NEETA ACOSTA [facility] Start: 05-04-2023 End: 05-04-2023 Emergency department patient visit Jany Umanzor DO Work Phone: [facility] Comment on above: Pain, dental (Primar y Dx); Dental abscess; Dental caries Start: 12-01-2021 End: 07-06-2022 ambulatory [place] Start: 06-04-2020 Patient encounter procedure FREDDIE HILLMAN Facility:[facility] Start: 12-18-2019 End: 12-19-2019 Patient encounter procedure MARY PERALTA [facility] Procedures Date Procedure Procedure Detail Performing Clinician Start: 12-28-2023 Follow-up visit Follow-up BRYAN JONES Start: 12-28-2023 Adult depression scr eening assessment Bryan Jones DO Work Phone: Start: 10-05-2023 Mammography Bryan Lurdes natalya DO Work Phone: Start: 12-18-2019 Assay of thyroid stimulating hormone tsh MARY PERALTA Start: 12-18-[address] gtt 3 specimens MARY PERALTA Start: 12-18-2019 Hemoglobin glycosyla bernardino a1c MARY PERALTA Start: 12-18-2019 Lipid panel MARY PALOMINO [facility] Start: 08-28-2018 Microscopic observat ion [Identifier] in Cervix by Cyto homero Jones DO Work Phone: Plan of Treatment Date Care Activity Detail Author Start: 04-02-2025 Adult BMI Screening Adult BMI Screen ing [facility] Start: 04-02-2025 Tobacco Screening Tobacco Screening [facility] Start: 12-27-2024 Adult BMI Screening Adult BMI Screen ing [facility] Start: 12-27-2024 Depression Screening Depression Scre ening [facility] Start: 12-27-2024 Tobacco Screening Tobacco Screening [facility] Start: 12-17-2024 Lipid panel Lipids [facility] [email or web address] [facility] Start: 10-04-2024 Screening for malign ant neoplasm of breast Mammogram [facility] Start: 05-09-2024 End: 05-10-2025 US Pelvis transvaginal Ultrasound transvaginal non OB Imaging Routine Post-menopausal bleeding Expected: 05/09/2024, Expires: 05/10/2025 [employer] Work Phone: Comment on above: Expected: 05/09/2024 , Expires: 05/10/2025 Start: 05-09-2024 End: 05-09-2024 Patient encounter procedure 05/09/2024 10:40 AM EST Office Visit [facility] [address] [place] [address] Donavan Sams, NURSING CLERK-[employer] TOP HELPER [address] [place] [address] [facility] Start: 04-02-2024 End: 04-02-2024 Patient encounter procedure 04/02/2024 3:30 PM EST Office Visit [facility] [address] [place] [address] Bryan Jones G, DO [address] [facility], [place] [place] [address] [facility] Start: 01-14-2024 Influenza vaccination Influenza Vacc ine [facility] Start: 12-17-2022 Diabetes screen Diabetes screen [facility] Start: 12-13-2022 Influenza vaccination Flu vaccine (# 1) [facility] Start: 08-28-2021 Screening for malign ant neoplasm of cervix Pap Smear [facility] Start: 2020 Screening for malign ant neoplasm of colon [facility] Start: 2005 Screening for malign ant neoplasm of cervix [facility] Start: 1996 Screening for malign ant neoplasm of cervix Pap smear [facility] Start: 1994 DTaP,Tdap and Td Vaccines (1 - Tdap) DTaP,Tdap and Td Vaccines (1 - Tdap) [facility] Start: 1994 DTaP/Tdap/Td vaccine (1 - Tdap) DTaP/Tdap/Td vaccine (1 - Tdap) [facility] Start: 1993 Adult BMI Follow Up Plan Adult BMI Follow Up Plan [facility] Start: 1993 Hepatitis C screening Hepatitis C sc reen [facility] Start: 1990 HIV screening HIV screen [facility] Start: 1987 Depression Screen Depression Screen [facility] Start: 1981 Pneumococcal 0-64 ye ars Vaccine (1 - PCV) Pneumococcal 0-64 years Vaccine (1 - PCV) [facility] Start: 1975 COVID-19 Vaccine (#1) COVID-19 Vacci ne (#1) [facility] Start: 1975 Hepatitis B vaccine (1 of 3 - 3-dose series) Hepatitis B vaccine (1 of 3 - 3-dose series) [facility] Start: 1975 Tobacco Counseling Tobacco Counselin jessie [facility] End: 05-09-2025 Cytopathology procedure, preparation of smear, genital source Pap Smear Pathology and Cytology Routine Encounter for gynecological examination without abnormal finding 1 Occurrences starting 05/09/2024 until 05/09/2025 [facility] Comment on above: 1 Occurrences starti ng 05/09/2024 until 05/09/2025 Payers Date Payer Category Payer Self-pay 2022 Medicaid [id number] 2022 Medicaid [id number] 1. [id number] 2021 Unknown [id number] 1975 Unknown [id number] 2.16.8 [id number] 1975 Unknown [id number] 2.16.84 [id number] 1975 Unknown [id number] 2.16.8 [id number] 1975 Unknown [id number] 2.16.8 [id number] 1975 Unknown [id number] 2.16.8 [id number] 1975 Unknown [id number] 2.16.8 [id number] 1975 Unknown [id number] 2.16.8 [id number] 1975 Unknown [id number] 2.16.8 [id number] 1975 Unknown [id number] 2.16.8 [id number] 1975 Unknown [id number] 2.16.8 [id number] 1975 Unknown [id number] 2.16.8 [id number] 1975 Unknown [id number] 2.16.8 [id number] 1975 Unknown [id number] 2.16.8 [id number] 1975 Unknown [id number] 2.16.8 [id number] 1959 Unknown [id number] Unknown [id number] 2.16.8 [id number] Social History Date Type Detail Facility Start: 05-26-1987 End: 09-26-2023 Tobacco smoking status MN[facility] Start: 05-26-1987 History of tobacco use Cigarette Smo ker [facility] Start: 12-18-2019 End: 09-26-2023 Tobacco use and exposure Smokeless tobacco non-user [facility] Start: 12-18-2019 End: 05-09-2024 Alcohol intake Current drinker of alcohol (finding) [facility] Start: 12-18-2019 End: 10-06-2021 History of Social function [facility] Start: 12-18-2019 End: 10-06-2021 Tobacco use panel [facility] Start: 12-18-2019 Alcohol Comment rare [facility] Start: 1975 Sex Assigned At Not on file [facility] History of tobacco use Cigar Smoker [facility] Has the [employer], or [employer] threatened to shut off services in your home in past 12Mo No [facility] Are you now , , , , never or living with a partner? Never [facility] How often to you hav e a drink containing alcohol? 2-4 times a month [facility] How many standard drinks containing alcohol do you have on a typical day? 1 or 2 [facility] How often do you hav e 6 or more drinks on 1 occasion? Never [facility] How hard is it for y ou to pay for the very basics like food, housing, medical care, and heating Very hard [facility] Adolescent depressio n screening assessment 0 [facility] Do you feel stress - tense, restless, nervous, or anxious, or unable to sleep at night because your mind is troubled all the time - these days [OSQ] Very much [facility] Start: 10-06-2021 Education 16 [facility] Start: 09-26-2023 Tobacco Comment Quit for a yea r with each [facility] Start: 04-11-[address] [facility] Start: 1975 Sex assigned at Female P [facility] Start: 05-08-2021 Gender identity Identifies as female gender (finding) [facility] Start: 05-08-2021 Sexual orientation Heterosexual (fin ding) [facility] Start: 12-18-2014 Sex Female (finding) [facility] Procedure Code Equipment Code Equipment Origin al Text Equipment Identifier Dates [employer] [facility] [id number] - [id number] Start: 02-01-2017 Clinical Notes 05-04-2023 to 05-09-2024 Donavan Sams APRN-[facility] - 05/09/2024 10:40 AM Chasidy Jones, - 04/02/2024 3:30 PM ESTAddendum Note - Bryan Jones, - 04/02/2024 3:30 PM ESTDischarge Instructions Note Date & Type Note Facility 05-09-2024 History of Presen t illness Narrative Annual Well Woman Visit 05/09/2024 Rafael Almonte is a 48 y.o. female who presents for annual exam. Patient would like STD testing today with GC/CT only - 1 partner in last year that may have had other partners. Complaints today: Patient stopped her progesterone oral pill in July and started vaginally bleeding from December until last week. She did pass some blood clots in this time. She was told she was postmenopausal per blood work earlier this year in September. Patient does report to milking her breasts at times and having some milky discharge. This has been going on since before 2014. Ten or more years. She did mention this to her lead accountant in the past. Patient also has skin cyst that been present for years that she used to have removed by local general surgery - who has since retired. Relationship status: in a relationship, non-monogamous The patient reports that there is not domestic violence in her life. Sexually active: Yes Partner(s) current: 1 Sexual concerns: none Patient works: unemployed, disabled smoker (0.25 ppd x 37 yrs) IF Yes , motivated to quit NO Children YES How many 5 vaginal delivery Current contraception: tubal ligation History of abnormal Pap smear: yes - Greater than 10 years ago she had an abnormal Pap with colposcopy and Paps have been normal ever since. Last pap: Two years ago with lead accountant, normal Regular self breast exam: yes Last mammogram: 2023 OB History 7 Para 5 Term 5 0 AB 2 Living 5 SAB 2 IAB 0 Ectopic 0 Multiple 0 Live Births 5 The following portions of the patient's history were reviewed and updated as appropriate: allergies, current medications, past family history, past medical history, past social history, past surgical history and problem list. MEDICAL HX Past Medical History: Diagnosis Date Abnormal Pap smear of cervix ADHD (attention deficit hyperactivity disorder) Anxiety Asthma Backache Bipolar 1 disorder (CMS-HCC) Depression Goiter Mass of breast, right Migraine MRSA (methicillin resistant Staphylococcus aureus) Osteoarthritis Panic disorder PTSD (post-traumatic stress disorder) Sciatica SURGICAL HX Past Surgical History: Procedure Laterality Date APPENDECTOMY BREAST BIOPSY Right 09/2018 BREAST CYST ASPIRATION Right HYSTEROSCOPY ESSURE LIGATION TUBAL LEFT SIDE Left 02/01/2017 Performed by Xiao Mendoza MD at [facility] SURGERY RELEASE TRIGGER FINGER THUMB Right 11/18/2020 Performed by Gregory Corrigan MD at [facility] SALPINGOOPHORECTOMY Right THYROID SURGERY FAMILY HX Family History Problem Relation Age of Onset Diabetes Mother Breast cancer Mother Cancer Father 62 liver Cancer Sister middle ear No Known Problems Sister No Known Problems Brother No Known Problems Daughter No Known Problems Daughter Kidney disease Son unsure of diagnosis No Known Problems Son No Known Problems Son Breast cancer Maternal Grandmother 94 Cancer Maternal Grandmother lung MEDS Current Outpatient Medications Medication Sig Dispense Refill amphetamine-dextroamphetamine XR (ADDERALL XR) 25 mg 24 hr capsule Take 1 capsule (25 mg total) by mouth every morning. Max Daily Amount: 25 mg 30 capsule 0 hydrOXYzine (ATARAX) 25 mg tablet Take 1 tablet (25 mg total) by mouth 3 (three) times a day as needed for itching. meloxicam (MOBIC) 15 mg tablet Take 1 tablet (15 mg total) by mouth daily as needed for pain. 30 tablet 2 PARoxetine (PAXIL) 30 mg tablet triamcinolone (KENALOG) 0.1 % cream APPLY A THIN FILM TO THE AFFECTED SKIN AREAS BY TOPICAL ROUTE 2-3 TIMES A DAY NEEDED No current facility-administered medications for this visit. ALLERGIES Allergies Allergen Reactions Penicillins Hives Review of Systems Review of Systems Constitutional: Negative for chills and fever. HENT: Negative for ear pain and sore throat. Eyes: Negative for pain and visual disturbance. Respiratory: Negative for cough and shortness of breath. Cardiovascular: Negative for chest pain and palpitations. Gastrointestinal: Negative for abdominal pain and vomiting. Genitourinary: Positive for vaginal bleeding. Negative for dysuria and hematuria. Musculoskeletal: Negative for arthralgias and back pain. Skin: Negative for color change and rash. Bumps or cysts under skin in multiple areas Neurological: Negative for seizures and syncope. Psychiatric/Behavioral: Negative. All other systems reviewed and are negative. Objective BP 90/50 (BP Site: Left Arm, BP Postition: Sitting) Pulse 90 Temp 36.5 C (97.7 F) (Oral) Resp 18 Ht 162.6 cm (5' 4 ) Wt 67.4 kg (148 lb 9.6 oz) SpO2 98% BMI 25.51 kg/m Physical Exam Vitals reviewed. Executive Director present: Executive Director declined. Constitutional: Appearance: Normal appearance. HENT: Head: Normocephalic and atraumatic. Right Ear: Tympanic membrane, ear canal and external ear normal. Left Ear: Tympanic membrane, ear canal and external ear normal. Nose: Rhinorrhea present. Mouth/Throat: Mouth: Mucous membranes are moist. Eyes: Pupils: Pupils are equal, round, and reactive to light. Neck: Thyroid: No thyroid mass, thyromegaly or thyroid tenderness. Cardiovascular: Rate and Rhythm: Normal rate and regular rhythm. Heart sounds: Normal heart sounds. Pulmonary: Effort: Pulmonary effort is normal. Breath sounds: Normal breath sounds. Chest: Breasts: Right: Normal. Left: Normal. Abdominal: General: Bowel sounds are normal. Palpations: Abdomen is soft. Tenderness: There is no abdominal tenderness. Genitourinary: Exam position: Supine. Vagina: Normal. Cervix: Normal. No cervical motion tenderness, discharge or erythema. Uterus: Normal. Adnexa: Right adnexa normal and left adnexa normal. Musculoskeletal: Right lower leg: No edema. Left lower leg: No edema. Lymphadenopathy: Cervical: No cervical adenopathy. Upper Body: Right upper body: No supraclavicular or axillary adenopathy. Left upper body: No supraclavicular or axillary adenopathy. Skin: General: Skin is warm. Capillary Refill: Capillary refill takes less than 2 seconds. Neurological: General: No focal deficit present. Mental Status: She is alert and oriented to person, place, and time. Psychiatric: Mood and Affect: Mood normal. Behavior: Behavior normal. Assessment/Plan: Deshaun was seen today for gynecologic exam. Diagnoses and all orders for this visit: Encounter for gynecological examination without abnormal finding - Pap Smear; Future Patient offered other STD screening today but she declines and would only like gonorrhea and chlamydia. Post-menopausal bleeding - Ultrasound transvaginal non OB; Future Patient should not have bleeding after menopause even after 5 months of being on the progesterone orally. Obtain transvaginal ultrasound. Primary osteoarthritis of right hip She is out of work or disabled due to this condition and will be following up with pain management. Smoker Patient does not want to stop smoking despite knowing negative health consequences. Epidermoid cyst - Ambulatory referral to Dermatology ([facility]); Future Multiple, what appear to be epidermoid cyst will order new referral for dermatology for this and full body skin cancer check. Skin cancer screening - Ambulatory referral to Dermatology ([facility]); Future BMI is in the acceptable range. Breast self exam technique reviewed and patient encouraged to perform self-exam monthly. Discussed healthy lifestyle modifications. Educational material distributed. Follow up in 1 year for annual exam. Follow up as needed. Next pap due 3yrs per ASCCP guidelines. Discussed taking a multivitamin. Discussed Calcium and Vitamin D for prevention of osteoporosis. Discussed need for yearly mammogram after 40 yo. Discussed colon cancer screening recommendations to begin at 45 yo. All questions answered. ALFREDA AGUSTIN APRN-CNP 05/09/24 1304 documented in this encounter [employer] 04-02-2024 History of Presen t illness Narrative Subjective Video Visit via Real-time Synchronous Audiovisual Provider Location: [facility] [address] [facility] [id number] Patient Location: [facility] house Video Visit Consent Statement: I discussed risks, benefits, and alternatives of a real-time synchronous audiovisual consultation with the patient (and any accompanying persons) including the risks that the patient's personal health details and medical records will be discussed over real-time, synchronous, interactive video/audio/telecommunication technology, the visit will not be recorded without the express consent of both the provider and the patient, and that there are some limitations compared to [id number] evaluations. The patient consented to the presence of additional virtual and/or in-person participants. We elected to proceed. Patient ID: Deshaun Almonte is a 48 y.o. female. Deshaun agreed to a telehealth visit to recheck ADD, anxiety and chronic back pain. She did not hear from the [facility] after I sent the referral last visit. She is using meloxicam with benefit. She only takes it as needed when the pain gets bad. Does provide relief. She is using the hydroxyzine and paroxetine as needed. It does work when she uses it that way. Her anxiety overall has been doing well. She is taking the Adderall. It is helping but she gets fatigued in the early afternoon. Makes it hard to focus. She would like to increase the dose. She is not having any side effects. She would like to get a doctor's note saying that she needs to get her license back so she can go to doctor's appointments. Right now it has been suspended because she is behind on child support payments. She is trying to get her financial situation in order. She is hoping to get a stable home soon. She is hoping to get public assistance so she can get a stable home. She has been stressed because her 31-year-old daughter was recently diagnosed with skin cancer. It is hereditary on her father's side. She is getting worked up for that right now. It is unknown if it is metastasized at all. The following portions of the patient's history were reviewed and updated as appropriate: allergies, current medications, past family history, past medical history, past social history, past surgical history, problem list, and medication reconciliation was completed including current medication and post discharge medication. Review of Systems Objective Physical Exam Vitals reviewed. Constitutional: General: She is not in acute distress. Appearance: She is not ill-appearing. HENT: Head: Normocephalic. Pulmonary: Effort: Pulmonary effort is normal. Neurological: General: No focal deficit present. Mental Status: She is alert and oriented to person, place, and time. Psychiatric: Attention and Perception: Attention normal. Mood and Affect: Mood and affect normal. Speech: Speech normal. Behavior: Behavior normal. Behavior is cooperative. Thought Content: Thought content normal. Assessment/Plan Diagnoses and all orders for this visit: Attention deficit hyperactivity disorder (ADHD), unspecified ADHD type - amphetamine-dextroamphetamine XR (ADDERALL XR) 25 mg 24 hr capsule; Take 1 capsule (25 mg total) by mouth every morning. Max Daily Amount: 25 mg Adderall has been helping but still with symptoms. She is using high risk medication with benefit. We will increase the dose to 25 mg daily. The OARRS/MAPPS database was reviewed today and found to be appropriate. No indication of medication diversion, or non compliance. Anxiety She is stable with hydroxyzine and paroxetine p.r.n.. Can use paroxetine daily she worsens. Primary osteoarthritis of right hip Continue meloxicam. Will check to see the status of her referral. documented in this encounter [facility] 04-02-2024 Miscellaneous Notes Addended by: BRYAN JONES on: 04/02/2024 05:36 PM Modules accepted: Orders documented in this encounter [facility] 04-02-2024 Note Addended by: BRYAN JONES on: 04/02/2024 05:36 PM Modules accepted: Orders [facility] 02-21-2024 Miscellaneous Notes Reschedule 03/08 appt LM on VM LM on VM Rescheduled documented in this encounter [facility] 02-21-2024 Telephone encounter Note Reschedule 03/08 appt [facility] 02-21-2024 Telephone encounter Note LM on VM [facility] 02-21-2024 Telephone encounter Note LM on VM [facility] 02-21-2024 Telephone encounter Note Rescheduled [facility] 05-04-2023 Hospital Discharg Donna Parker PA-C - 05/04/2023 6:18 PM EST Please fill, take and complete antibiotics as prescribed Soft diet for comfort. Rinse your mouth with water after eating. Return to the emergency room for increased pain, swelling, difficulty breathing, difficulty swallowing, fever or other emergent concerns documented in this encounter [facility] Evaluation note Diagnosis Pain, dental- Primary Unspecified disorder of the teeth and supporting structures Dental abscess Periapical abscess without sinus Dental caries Unspecified dental caries documented in this encounter [facility] Diagnosis Attention deficit hyperactivity disorder (ADHD), unspecified ADHD type [facility] Diagnosis Attention deficit hyperactivity disorder (ADHD), unspecified ADHD type- Primary Anxiety Anxiety state, unspecified Primary osteoarthritis of right hip [facility] Diagnosis Encounter for gynecological examination without abnormal finding- Primary Post-menopausal bleeding Postmenopausal bleeding Primary osteoarthritis of right hip Smoker Tobacco use disorder Epidermoid cyst Sebaceous cyst Skin cancer screening Screening for malignant neoplasm of the skin documented [facility] this [facility] filedocumented in this encounter [facility] on filedocumented in this encounter [facility]Not on filedocumented in this encounter [facility] on filedocumented in this encounter [facility] Summary Purpose Family History No Family History Records FoundNo Family History Records FoundNo Family History Records FoundNo Family History Records FoundNo Family History Records FoundNo Family History Records FoundNo Family History Records FoundNo Family History Records Found Advance Directives No Advanced Directives Records FoundNo Advanced Directives Records FoundNo Advanced Directives Records FoundNo Advanced Directives Records FoundNo Advanced Directives Records FoundNo Advanced Directives Records FoundNo Advanced Directives Records FoundNo Advanced Directives Records Found Additional Source Comments INFORMATION SOURCE (unrecogn ized section and content) DATE CREATED AUTHOR 12/19/2019 [facility] DATE CREATED AUTHOR AUTHOR'S ORGANIZ ATION 05/18/2020 [facility] DATE CREATED AUTHOR AUTHOR'S ORGANIZ ATION 07/07/2022 [place] DATE CREATED AUTHOR AUTHOR'S ORGANIZ ATION 05/05/2023 [facility] DATE CREATED AUTHOR AUTHOR'S ORGANIZ ATION 08/10/2023 [facility] DATE CREATED AUTHOR AUTHOR'S ORGANIZ ATION 09/28/2023 [facility] DATE CREATED AUTHOR AUTHOR'S ORGANIZ ATION 05/10/2024 [facility] DATE CREATED AUTHOR AUTHOR'S ORGANIZ ATION 05/11/2024 [facility] Reason for Visit (unrecogniz ed section and content) Reason Comments Dental Pain Left lower. Pt belie ves she has a cavity. Has been taking advil and oragel Reason Onset Date Comments Med Refill 02/27/2024 Reason Onset Date Comments Med Refill 03/31/2024 Reason Onset Date Comments Med Refill 05/03/2024 Reason Comments Gynecologic Exam Ordered Prescriptions (unrec ognized section and content) Prescription Sig Dispensed Refills Start Date End Da te HYDROcodone-acetaminophe n (NORCO) 5-325 MG per tabletIndications:Pain, dental,Dental abscess,Dental caries Take 1 tablet by mouth every 6 hours as needed for Pain for up to 3 days. Intended supply: 3 days. Take lowest dose possible to manage pain Max Daily Amount: 4 tablets 12 tablet 0 05/04/2023 05/07/2023 penicillin v potassium (VEETID) 500 MG tablet Take 1 tablet by mouth 4 times daily for 7 days 28 tablet 0 05/04/2023 05/11/2023 ibuprofen (IBU) 800 MG tablet Take 1 tablet by mouth every 8 hours as needed for Pain 21 tablet 0 05/04/2023 Scheduled Active and Recently Administ ered Medications (unrecognized section and content) Medication Order 05/02/2023 05/03/2023 05/04/2023 penicillin v potassium (VEETID) tablet 500 mg (COMPLETED) 500 mg, Oral, ONCE, 1 dose, On Clarice 05/04/23 at 1815, Antimicrobial Indications: Other, Other Abx Indication: dental abscess, Tube feeding (TF) interaction, obtain physician order to manage, recommend holding TF for 1 hr before and 2 hrs after dose. 1823 (Given - Provid er: Jaqueline Day RN) Care Teams (unrecognized sec tion and content) Exchange Trouble Shooter Relationship Specialty Start Date End Date Bryan Jones DO [address] [facility], [place] [address] PCP - General Family Medicine 09/26/23 Exchange Trouble Shooter Relationship Specialty Start Date End Date Bryan Jones DO [address] [place] [address] PCP - [facility] Medicine 09/26/23 Exchange Trouble Shooter Relationship Specialty Start Date End Date Bryan Jones DO [address] [place] [address] [place] [address] PCP - [facility] Family Medicine 09/26/23 Exchange Trouble Shooter Relationship Specialty Start Date End Date Bryan Jones DO [address] [place] [address] [place] [address] PCP - [facility] 09/26/23 Exchange Trouble Shooter Relationship Specialty Start Date End Date Bryan Jones DO [address] [place] [address] [place] [address] PCP - General Family Medicine 09/26/23 FOR RECORDS PERTAINING TO PATIENTS WHO ARE OR HAVE BEEN ENROLLED IN A CHEMICAL DEPENDENCY/SUBSTANCEABUSE PROGRAM, SOME INFORMATION MAY BE OMITTED. This clinical summary was aggregated from multiple sources. Caution should be exercised in using it in the provision of clinical care. This summary normalizes information from multiple sources, and as a consequence, information in this document may materially change the coding, format and clinical context of patient data. In addition, data may be omitted in some cases. CLINICAL DECISIONS SHOULD BE BASED ON THE PRIMARY CLINICAL RECORDS. [facility] [facility]. provides no warranty or guarantee of the accuracy or completeness of information in this document.
--- NOTE | 2024-05-13 19:52 | US_ITS ---
The [address] [address] Patient Name: DESHAUN BECKFORD MRN: [id number] date: 1975 Sex: F Assigned Patient Location: US Current Patient Location: Accession/Order Number: [id number] Exam Date: 05/13/2024 19:55 Report Date: 05/14/2024 07:42 At the request of: DONAVAN SAMS Procedure: US pelvis w/ transvaginal EXAMINATION: US pelvis w/ transvaginal HISTORY: POST MENOPAUSAL BLEEDING N95.0 COMPARISON: No relevant comparison available. FINDINGS: Findings transabdominal and transvaginal imaging The uterus is normal in size, contour and myometrial echotexture measuring 7.0 x 4.5 x 3.3 cm. No focal mass. Endometrium measures 5.0 mm, normal The right ovary is not visualized The left ovary measures 2.2 x 1.6 x 1.9 cm. Normal color Doppler flow. Anechoic echogenicity likely representing a follicle or cyst measuring 1.2 cm. Linear structure identified along the uterine fundus I suspect this represents prior tubal closure device US/US pelvis w/ transvaginal IMPRESSION: Normal endometrial thickness Electronically authenticated by: CARLI ARRIOLA Date: 05/14/2024 07:42
== END 2024-05-13 19:35 | disposition home or self-care (01) ==
LOC: US 19:34
PROVIDERS: PCP Family Medicine; Visit Provider Nurse Practitioner Family
DX: N95.0 Postmenopausal bleeding (principal)
CPT/HCPCS: 76830; 76856

== ENCOUNTER 2024-08-28 10:32 | Outpatient (OUT) | payer MEDICAID, SELFPAY ==
--- NOTE | 2024-08-28 10:52 | XR_ITS ---
The [address] [address] Patient Name: DESHAUN BECKFORD MRN: [id number] date: 1975 Sex: F Assigned Patient Location: [facility] Current Patient Location: [facility] Accession/Order Number: [id number] Exam Date: 08/28/2024 11:29 Report Date: 08/28/2024 11:31 At the request of: GLENDY JORDAN Procedure: XR wrist LT min 3V LEFT WRIST - 3 views COMPARISON: None CLINICAL DATA: Left wrist pain for the past 4 months medially. No injury. AP, lateral and oblique views were obtained. No acute or healing fractures are identified. No dislocation is seen. There is no disproportionate joint space narrowing however there is minimal marginal spurring at the first carpal metacarpal joint. No soft tissue swelling is noted. XR/XR wrist LT min 3V IMPRESSION: NO ACUTE BONY FINDINGS. Impression dictated by: Adilia Celaya M.D.08/28/2024 11:31 AM Dictation Location: [place] [address] Electronically authenticated by: [id number] Y Date: 08/28/2024 11:31
--- OUTSIDE RECORDS SUMMARY | 2024-08-28 11:02 | XMS_ITS | CCD ---
Author Organization [facility] Care Team Providers Care Asphalt Paver Name Role Phone FABIAN MARY Referring Unavailable MARY PERALTA Primary Care Unavailable DENIS, SÁNCHEZ S Admitting Unavailable DENIS, SÁNCHEZ S Attending Unavailable BRIAN SUH Unavailable Unavailable Primary Care Provider UnavailNEETA Romano Primary Care Unavailable JANY UMANZOR Attending Unavailable Jeremie Emery Attending Unavailab le Jeremie Emery Admitting Unavailab le ANGUS STAFF Primary Care Unavailable LURDESLORODGER, BRYAN Guzman Referring Unavailable FURLONG, BYRAN Guzman Primary Care Unavailable Furlong Bryan BLAIR Primary Care Provider BRYAN JONES Attending Unavailable FURLONG, BRYAN Guzman Referring Unavailable FURLONG, BRYAN Guzman Primary Care Unavailable FURLONG, BRYAN Guzman Referring Unavailable FURLONG, BRYAN Guzman Primary Care Unavailable SUGAR BASILIO Attending Unavailable NO PCP, NO PCP Primary Care Unavailable BRYAN JONES Attending Unavailable FURLONGBRYAN Referring Unavailable FURLONG, BRYAN Guzman Primary Care Unavailable DONAVAN SAMS Referring Unavailable FURLONG, BRYAN Guzman Primary Care Unavailable FURLONG, BRYAN Guzman Attending Unavailable FURLONG, BRYAN Guzman Primary Care Unavailable FURLONG, BRYAN Guzman Attending Unavailable FURLONG, BRYAN G Referring Unavailable FURLONG, BRYAN G Primary Care Unavailable FURLONG, BRYAN G Attending Unavailable FURLONG, BRYAN G Primary Care Unavailable FURLONG, BRYAN G Attending Unavailable FURLONG, BRYAN G Referring Unavailable FURLONG, BRYAN Guzman Primary Care Unavailable LATRELLDONAVAN HODLER Attending Unavailable FURLONG, BRYAN Guzman Referring Unavailable FURLONG, BRYAN G Primary Care Unavailable FURLONG, BRYAN Guzman Attending Unavailable FURLONG, BRYAN G Referring Unavailable BRYAN JONES Primary Care Unavailable Allergies Allergy Classification Reported Allergen(s) Allergy Type Date of Onset Reaction(s) Facility (20 sources) Penicillins; Translations: [PENICILLINS] Propensity to adverse [...] sulfate 6.25 mg extended release oral capsule (20 sources) Central Nervous System Stimulant Start: 07-29-2024 take 1 capsule by mouth once daily in the morning amphetamine-dextro amphetamine XR (ADDERALL XR) 25 mg 24 hr capsule Indications: Attention deficit hyperactivity disorder (ADHD), unspecified ADHD type Take 1 capsule (25 mg total) by mouth every morning. Max Daily Amount: 25 mg 30 capsule 07/29/2024 Active Start: 05-30-2024 End: 07-28-2024 take 1 capsule by mouth once daily in the morning amphetamine-dextroamphetamine XR (ADDERA LL XR) 25 mg 24 hr capsule Indications: Attention deficit hyperactivity disorder (ADHD), unspecified ADHD type Take 1 capsule (25 mg total) by mouth every morning. Max Daily Amount: 25 mg 30 capsule 07/02/2024 07/28/2024 Discontinued (Reorder) Start: 05-01-2024 End: 05-27-2024 take 1 capsule by mouth once daily in the morning amphetamine-dextroamphetamine XR (ADDERA LL XR) 25 mg 24 hr capsule Indications: Attention deficit hyperactivity disorder (ADHD), unspecified ADHD type Take 1 capsule (25 mg total) by mouth every morning. Max Daily Amount: 25 mg 30 capsule 05/01/2024 05/27/2024 Discontinued (Reorder) Start: 04-02-2024 take 1 capsule by mo uth once daily in the morning amphetamine-dextroamphetamine XR (ADDERA LL XR) 25 mg 24 hr capsule Indications: Attention deficit hyperactivity disorder (ADHD), unspecified ADHD type Take 1 capsule (25 mg total) by mouth every morning. Max Daily Amount: 25 mg 04/02/2024 Active Start: 01-29-2024 End: 04-02-2024 take 1 capsule by mouth once daily in the morning amphetamine-dextroamphetamine XR (ADDERA LL XR) 20 mg 24 hr capsule Indications: Attention deficit hyperactivity disorder (ADHD), unspecified ADHD type Take 1 capsule (20 mg total) by mouth every morning. Max Daily Amount: 20 mg 30 capsule 04/01/2024 04/02/2024 Discontinued (Dose adjustment) Start: 12-28-2023 End: 01-27-2024 take 1 capsule by mouth once daily in the morning amphetamine-dextroamphetamine XR (ADDERA LL XR) 20 mg 24 hr capsule Indications: Attention deficit hyperactivity disorder (ADHD), unspecified ADHD type Take 1 capsule (20 mg total) by mouth every morning. Max Daily Amount: 20 mg 30 capsule 12/28/2023 01/27/2024 Discontinued (Reorder) Start: 10-23-2023 End: 12-28-2023 take 1 capsule by mouth once daily in the morning amphetamine-dextroamphetamine XR (ADDERA LL XR) 15 mg 24 hr capsule Indications: Attention deficit hyperactivity disorder (ADHD), unspecified ADHD type Take 1 capsule (15 mg total) by mouth every morning. Max Daily Amount: 15 mg 30 capsule 11/21/2023 12/28/2023 Discontinued (Dose adjustment) Start: 09-26-2023 End: 10-23-2023 take 1 capsule by mouth once daily in the morning amphetamine-dextroamphetamine XR (ADDERA LL XR) 10 mg 24 hr capsule Indications: Attention deficit hyperactivity disorder (ADHD), unspecified ADHD type Take 1 capsule (10 mg total) by mouth in the morning. Max Daily Amount: 10 mg. 30 capsule 09/26/2023 10/23/2023 Discontinued (Dose adjustment) brexpiprazole 0.5 mg oral tablet (1 source) Atypical Antipsychotic Start: 11-28-2019 REXULTI 0.5 MG TABS tablet One tablet at night 0 11/28/2019 Active busPIRone hydrochloride 10 mg oral tablet (1 source) Start: 11-28-2019 busPIRone (BUSPAR) 10 MG tablet Take one tablet at night 0 11/28/2019 Active meloxicam 15 mg oral tablet (20 sources) Nonsteroidal Anti-inflammatory Drug Start: 07-10-2024 take 1 tablet by mouth once daily as needed for pain meloxicam (MOBIC) 15 mg tablet TAKE 1 TABLET BY MOUTH EVERY DAY NEEDED FOR PAIN 30 tablet 2 07/10/2024 Active Start: 05-06-2024 End: 07-10-2024 take 1 tablet by mouth once daily as needed for pain meloxicam (MOBIC) 15 mg tablet Take 1 tablet (15 mg total) by mouth daily as needed for pain. 30 tablet 2 07/02/2024 07/10/2024 Discontinued Start: 10-23-2023 End: 05-03-2024 take 1 tablet [...] tablet 3 12/18/2019 05/04/2023 Discontinued (LIST CLEANUP) metroNIDAZOLE 500 mg oral tablet (3 sources) Nitroimidazole Antimicrobial Start: 05-27-2024 End: 06-03-2024 take 1 tablet by mouth at bedtime metroNIDAZOLE (FLAGYL) 500 mg tablet Take 1 tablet (500 mg total) by mouth in the morning and at bedtime for 7 days. 14 tablet 05/27/2024 06/03/2024 Active propranolol hydrochloride 10 mg oral tablet (11 sources) beta-Adrenergic Candelaria Start: 10-23-2023 End: 05-09-2024 propranoloL (INDERAL) 10 mg tablet Take 1 tablet (10 mg total) by mouth. 10/23/2023 05/09/2024 Discontinued (Patient Stopped On Own) Start: 03-02-2023 End: 09-26-2023 take 1 tablet by mouth twice daily propranoloL (INDERAL) 10 mg tablet take 1 tablet by mouth twice a day 03/02/2023 09/26/2023 Discontinued (Therapy completed) risperiDONE 2 mg oral tablet (1 source) Atypical Antipsychotic Start: 11-23-2019 risperi DONE (RISPERDAL) 2 MG tablet Take one tablet at night 0 11/23/2019 Active vilazodone hydrochloride 40 mg oral tablet (1 source) Start: 11-25-2019 VILAZODONE HCL 40 MG Tablet Completed/Discontinued Medications Medication Drug Class(es) Dates Sig (Normalized) Sig (Original) doxycycline hyclate 100 mg oral capsule (2 sources) Tetracycline-class Drug Start: 09-24-2023 End: 10-23-2023 doxycycline (VIBRAMYCIN) 100 mg capsule 09/24/2023 10/23/2023 Discontinued (Therapy completed) hydrOXYzine hydrochloride 25 mg oral tablet (20 sources) Antihistamine Start: 12-10-2021 End: 09-26-2023 take 1 tablet by mouth twice daily as needed hydrOXYzine (ATARAX) 25 mg tablet Take 1 tablet (25 mg total) by mouth 2 (two) times a day as needed. 12/10/2021 09/26/2023 Discontinued (Therapy completed) take 1 tablet by jazmine three times daily as needed hydrOXYzine (ATARAX) 25 mg tablet Take 1 tablet (25 mg total) by mouth 3 (three) times a day as needed for itching. Active ibuprofen 800 mg oral tablet (3 sources) Nonsteroidal Anti-inflammatory Drug Start: 05-04-2023 End: 10-23-2023 ibuprofen (IBU) 800 mg tablet Take 1 tablet (800 mg total) by mouth. 05/04/2023 10/23/2023 Discontinued (Ineffective) medroxyPROGESTERone acetate 10 mg oral tablet (2 sources) Progestin Start: 11-20-2022 End: 09-26-2023 take 1 tablet by mouth once daily in the morning medroxyPROGESTERone (PROVERA) 10 mg tablet Indications: Irregular menstrual bleeding take 1 tablet by mouth every morning 90 tablet 1 11/20/2022 09/26/2023 Discontinued (Therapy completed) Start: 11-14-2019 take 2 tablets by mo [facility] once daily medroxyPROGESTERone (PROVERA) 5 MG tablet TAKE 2 TABLETS BY MOUTH EVERY DAY 0 11/14/2019 Active methylPREDNISolone (1 source) Corticosteroid Start: 04-04-2023 End: 09-26-2023 methylPREDNISolone (MEDROL, CATALINO,) 4 mg tablet Indications: Chronic midline back pain, unspecified back location , Osteoarthritis of multiple joints, unspecified osteoarthritis type follow package directions 21 tablet 04/04/2023 09/26/2023 Discontinued (Therapy completed) multivitamin tablet (2 sources) Start: 09-26-2023 End: 10-23-2023 take 1 tablet by mouth in the morning multivitamin tablet Take 1 tablet by mouth in the morning. 09/26/2023 10/23/2023 Discontinued (Patient Stopped On Own) Start: 09-26-2023 take 1 tablet by jazmine th in the morning multivitamin tablet Take 1 tablet by mouth in the morning. 09/26/2023 Active PARoxetine hydrochloride 30 mg oral tablet (16 sources) Serotonin Reuptake Inhibitor Start: 10-23-2023 End: 07-08-2024 PARoxetine (PAXIL) 30 mg tablet 10/23/2023 07/08/2024 Discontinued (Therapy completed) Start: 03-17-2023 End: 09-26-2023 take 1 tablet by mouth once daily in the morning PARoxetine (PAXIL) 30 mg tablet Take 1 tablet (30 mg total) by mouth every morning. 03/17/2023 09/26/2023 Discontinued (Therapy completed) penicillin v potassium 250 m g oral tablet (2 sources) Start: 05-04-2023 End: 05-04-2023 penicillin v potassium (VEET ID) tablet 500 mg Start: 05-04-2023 End: 05-11-2023 take 1 tablet by mouth four times daily penicillin v potassium (VEETID) 500 MG tablet Take 1 tablet by mouth 4 times daily for 7 days 28 tablet 0 05/04/2023 05/11/2023 Active triamcinolone acetonide 1 mg/ml topical cream (18 sources) Corticosteroid Start: 10-10-2023 End: 07-08-2024 triamcinolone (KENALOG) 0.1 % cream APPLY A THIN FILM TO THE AFFECTED SKIN AREAS BY TOPICAL ROUTE 2-3 TIMES A DAY NEEDED 10/10/2023 07/08/2024 Discontinued (Therapy completed) Problems Active Problems Problem Classification Problem Date Documented Date Episodic/Chronic Anxiety disorders (20 sources) Post-traumatic stress disorder, unspecified; Translations: [Panic disorder [episodic paroxysmal anxiety]] Onset: 12-01-2021 Chronic Attention-deficit, conduct, and disruptive behavior disorders (2 sources) Attention-deficit hyperactivity disorder, predominantly inattentive type; Translations: [Attention-deficit hyperactivity disorder. predominantly inattentive type] Onset: 12-01-2021 Chronic Attention-deficit, conduct, and disruptive behavior disorders (20 sources) Attention deficit hyperactivity disorder; Translations: [Attention-deficit hyperactivity disorder, unspecified type] 09-26-2023 Chronic Attention-deficit, conduct, and disruptive behavior disorders (1 source) Attention-deficit hyperactivity disorder, unspecified type; Translations: [Attention-deficit hyperactivity disorder, unspecified type] Onset: 09-26-2023 Chronic Disorders of teeth and jaw (6 sources) Toothache; Translations: [Other specified disorders of teeth and supporting structures] Onset: 05-04-2023 05-04-2023 Episodic Menopausal disorders (6 sources) Menopausal and female climacteric states; Translations: [Postmenopausal bleeding] Onset: 09-26-2023 05-09-2024 Chronic Menstrual disorders (20 sources) Irregular periods; Translations: [Irregular menstruation, unspecified] Onset: 05-26-2016 05-26-2016 Chronic Mood disorders (2 sources) Bipolar II disorder; Translations: [Bipolar II disorder] Onset: 12-01-2021 Chronic Osteoarthritis (17 sources) Osteoarthritis of right hip joint; Translations: [Unilateral primary osteoarthritis, right hip] Onset: 10-23-2023 04-02-2024 Chronic Other aftercare (1 source) Encounter for therapeutic drug level monitoring; Translations: [Encounter for therapeutic drug level monitoring] Onset: 07-08-2024 Episodic Other non-traumatic joint disorders (1 source) Pain of left wrist; Translations: [Pain in left wrist] 07-08-2024 Episodic Other non-traumatic joint disorders (1 source) Pain in left wrist; Translations: [Pain in left wrist] Onset: 07-08-2024 Episodic Other skin disorders (2 sources) Epidermoid cyst; Translations: [Epidermal cyst] 05-09-2024 Episodic Other skin disorders (1 source) Epidermal cyst; Translations: [Epidermal cyst] Onset: 05-09-2024 Episodic Substance-related disorders (4 sources) Nicotine dependence, unspecified, uncomplicated; Translations: [Smoker] Onset: 12-01-2021 Chronic Thyroid disorders (3 sources) Hypothyroidism, unspecified; Translations: [Hypothyroidism] Onset: 09-26-2023 09-26-2023 Chronic Unclassified (2 sources) Half-Way Clearance Onset: 07-07-2023 Unclassified (1 source) controlled medication/ note to drive/ left wrist pain Onset: 07-08-2024 Unclassified (1 source) Gynecologic Exam Onset: 05-09-2024 Unclassified (1 source) New Patient Onset: 09-26-2023 Past or Other Problems Problem Classification Problem Date Documented Da te Episodic/Chronic Malaise and fatigue (1 source) Fatigue; Translations: [Other fatigue] Onset: 12-18-2019 12-18-2019 Episodic Mood disorders (20 sources) Mood disorders Onset: 12-28-2023 Resolved: 07-08-2024 12-28-2023 Other gastrointestinal disorders (2 sources) Other intra-abdominal and pelvic swelling, mass and lump; Translations: [Other intra-abdominal and pelvic swelling, mass and lump] Onset: 12-28-2023 Episodic Other gastrointestinal disorders (1 source) Groin mass; Translations: [Other intra-abdominal and pelvic swelling, mass and lump] 12-28-2023 Episodic Other non-traumatic joint disorders (1 source) Hip pain; Translations: [Pain in left hip] Onset: 12-18-2019 12-18-2019 Episodic Other non-traumatic joint disorders (1 source) Pain in right hip; Translations: [Pain in right hip] Onset: 09-28-2023 Episodic Other non-traumatic joint disorders (1 source) Pain in right hip joint; Translations: [Pain in right hip] 09-26-2023 Episodic Other non-traumatic joint disorders (1 source) Pain in left hip; Translations: [Pain in left hip] Onset: 09-26-2023 Episodic Other screening for suspected conditions (not mental disorders or infectious disease) (20 sources) Patient encounter status; Translations: [Encounter for screening for lipoid disorders] Onset: 05-27-2016 Resolved: 01-17-2020 01-17-2020 Episodic Other skin disorders (1 source) Seborrheic keratosis; Translations: [Other seborrheic keratosis] 12-28-2023 Episodic Other skin disorders (1 source) Other seborrheic keratosis; Translations: [Other seborrheic keratosis] Onset: 12-28-2023 Episodic Skin and subcutaneous tissue infections (20 sources) Pustule ; Translations: [Local infection of the skin and subcutaneous tissue, unspecified] Onset: 04-19-2017 04-19-2017 Episodic Spondylosis; intervertebral disc disorders; other back problems (1 source) Lumbar radiculopathy; Translations: [Radiculopathy, lumbar region] Onset: 12-18-2019 12-18-2019 Episodic Unclassified (1 source) Patient encounter status 05-09-2024 Results Test Name Value Interpretation Reference Range Facility CHLAMYDIA/GC PCR, FLon 05-09 CHLAMYDIA/GC PCR, FL [...] are dependent on adequate specimen collection. Normal [facility] Comment on above: Performed By: #### [facility] #### [facility] ([id number]) [address] [place] [address] [address] [place] [address] Cytologyon 05-09-2024 Cytology Normal [facility] Comment on above: Result Comment: [facility] [address] [place] [address] Gynecologic Cytology Consultation Patient Name:DESHAUN ALMONTE:1975 (Age: 48)Gender:FTaken:05/09/2024eported:05/25/2024Physician(s):Hoda Montague To: Rec. #:[id number]: #[id number] Final Cytologic Interpretation ThinPrep Pap Test (Cervical): Satisfactory for evaluation. A transformation zone component is present. NEGATIVE FOR INTRAEPITHELIAL LESION OR MALIGNANCY. Organisms highly suspicious for Trichomonas vaginalis identified. Shift in vaginal ajnum suggestive of bacterial vaginosis. lrd/05/25/2024 Interpretation performed at [facility], [address] [place] [id number], License number: [id number]. Electronically Signed Out By JUDE Ventura, (ASCP) Date of Last Menstrual Period: (None Given) Other Clinical Conditions: Abnormal Bleeding Menopausal Z01.419 Gate Watchman exam wo/abn findings Source of Specimen ThinPrep Pap Test (Cervical) Thin Prep Pap (PERSONAL BANKING ASSISTANT) Fee Code(s): G0145 The Pap test is a screening test with an inherent, but low, probability of error. The Pap test is primarily effective for the diagnosis and prevention of squamous cell carcinoma. Regular screening is critical for prevention. ThinPrep liquid-based slides, which meet the Integrated Specialist criteria for automated screening, have been screened by the ThinPrep Imaging System (as of 01/29/07) along with an additional manual rescreening by a associate professor of english and, if indicated, by a pathologist. HIGH RISK HPV W/GENOon 05-09 HPV 31+33+35+39+45+51+52 +56+58+59+66+68 DNA BRANDON+probe Ql (Cvx) HPV SPECIMEN TYPE ThinPrep HPV 16 Negative (qualifier value) HPV 18 Negative (qualifier value) OTHER HIGH RISK HPV Negative (qualifier value) HPV types 31,33,35,39,45,52,56,5 8,59,66 and 68 DNA were undetectable. 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 MAMM SCREENING BILATERAL W CAD MAMM [...] AM 1 b MAMM 1 YR Normal [facility] XR HIP RT 2-3 VIEWS W [...] Figueroa MD on 09/28/2023 4:00 PM Normal [facility] COMPREHENSIVE METABOLIC PANE Peter 09-26-2023 Albumin [Mass/Vol] 4.3 g/dL Normal 3.2-5.3 [facility] Comment on above: Performed By: #### C ARACELY, 69757-2, 08829-4, 2243-4, 72340-2 #### [facility] ([id number]) [address], [address] [place] [address] ALP [Catalytic activity/Vol] 61 U/L Normal 39-130 [facility] Comment on above: Performed By: #### C ARACELY, 79444-2, 37147-2, 2243-4, 40249-7 #### [facility] ([id number]) [address], [address] [place] [address] ALT [Catalytic activity/Vol] 12 U/L Normal 0-31 [facility] Comment on above: Performed By: #### C ARACELY, 33448-6, 19406-9, 2243-4, 84615-1 #### [facility] ([id number]) [address], [address] [place] [address] Anion gap [Moles/Vol] 11 mmol/L Normal 5-15 [facility] Comment on above: Performed By: #### C ARACELY, 97318-4, 55920-3, 2243-4, 65694-6 #### [facility] ([id number]) [address], [address] [place] [address] AST [Catalytic activity/Vol] 14 U/L Normal 0-41 [facility] Comment on above: Performed By: #### C ARACELY, 57189-8, 51070-4, 2243-4, 54322-1 #### [facility] ([id number]) [address], [address] [place] [address] Bilirubin [Mass/Vol] 0.4 mg/dL Normal 0.3-1.2 [facility] Comment on above: Performed By: #### C ARACELY, 93291-4, 80572-4, 2243-4, 21296-6 #### [facility] ([id number]) [address], [address] [place] [address] Calcium [Mass/Vol] 10.2 mg/dL Normal 8.5-10.5 [facility] Comment on above: Performed By: #### C ARACELY, 69746-4, 91546-4, 2243-4, 01997-8 #### [facility] ([id number]) [address], [address] [place] [address] Chloride [Moles/Vol] 106 mmol/L Normal 98-109 [facility] Comment on above: Performed By: #### C ARACELY, 63645-4, 48767-1, 2243-4, 89584-6 #### [facility] ([id number]) [address], [address] [place] [address] CO2 [Moles/Vol] 25 mmol/L Normal 22-32 [facility] Comment on above: Performed By: #### C ARACELY, 97017-4, 07565-6, 2243-4, 76040-0 #### [facility] ([id number]) [address], [address] [place] [address] Creatinine [Mass/Vol] 0.95 mg/dL Normal 0.40-1.00 [facility] Comment on above: Result Comment: METH OD TRACEABLE TO IDMS STANDARD Performed By: #### C ARACELY, 56080-8, 72955-9, 2243-4, 05650-4 #### [facility] ([id number]) [address], [facility] [address] [place] [address] GFR/1.73 sq M.predicted among non-blacks MDRD (S/P/Bld) [Vol rate/Area] 74 mL/min/{1.73_m2} Normal >59 [facility] Comment on above: Result Comment: Reported eGFR is based on the CKD-EPI 2020 equation that does not use a race coefficient. Performed By: #### C ARACELY, 40868-0, 30722-2, 2243-4, 21574-5 #### [facility] ([id number]) [address], [address] [place] [address] Glucose [Mass/Vol] 91 mg/dL Normal 65-99 [facility] Comment on above: Performed By: #### Quintin JESSICA, 20728-2, 24680-3, 224-4, 81575-2 #### [facility] ([id number]) [address], [address] [place] [address] Potassium [Moles/Vol] 4.6 mmol/L Normal 3.5-5.0 [facility] Comment on above: Performed By: #### C ARACELY, 52022-8, 81736-6, 2243-4, 61890-5 #### [facility] ([id number]) [address], [facility] [address] [place] [address] Protein [Mass/Vol] 6.9 g/dL Normal 6.0-8.0 [facility] Comment on above: Performed By: #### C ARACELY, 75647-2, 66965-2, 2243-4, 51972-4 #### [facility] ([id number]) [address], [address] [place] [address] Sodium [Moles/Vol] 142 mmol/L Normal 134-146 [facility] Comment on above: Performed By: #### C ARACELY, 70434-1, 68313-0, 2243-4, 43903-2 #### [facility] ([id number]) [address], [address] [place] [address] Urea nitrogen [Mass/Vol] 12 mg/dL Normal 5-23 [facility] Comment on above: Performed By: #### C , 03893-6, 75861-5, 2243-4, 33853-3 #### [facility] ([id number]) [address] [facility] [facility] [address] [place] [address] Comprehensive metabolic pane peter 09-26-2023 Albumin [Mass/Vol] 4.3 g/dL 3.2 - 5.3 g/dL Pr [facility] ALP [Catalytic activity/Vol] 61 U/L 39 - 130 U/L [facility] ALT No additional P-5'-P [Catalytic activity/Vol] 12 U/L 0 - 31 U/L [facility] Anion gap [Moles/Vol] 11 mmol/L 5 - 15 mmol/L [facility] AST [Catalytic activity/Vol] 14 U/L 0 - 41 U/L [facility] Bilirubin [Mass/Vol] 0.4 mg/dL 0.3 - 1 .2 mg/dL [facility] Calcium [Mass/Vol] 10.2 mg/dL 8.5 - 10. 5 mg/dL [facility] Chloride [Moles/Vol] 106 mmol/L 98 - 10 9 mmol/L [facility] CO2 [Moles/Vol] 25 mmol/L 22 - 32 mmol/L [facility] Creatinine [Mass/Vol] 0.95 mg/dL 0.40 - 1.00 mg/dL [facility] Comment on above: METHOD TRACEABLE TO IDMS STANDARD eGFR (CKD-EPI)non-race dependent 74 - PINF [facility] Comment on above: Reported eGFR is based on the CKD-EPI 2020 equation that does not use a race coefficient. Glucose [Mass/Vol] 91 mg/dL 65 - 99 mg/dL [facility] Potassium [Moles/Vol] 4.6 mmol/L 3.5 - 5.0 mmol/L [facility] Protein [Mass/Vol] 6.9 g/dL 6.0 - 8.0 g/dL [facility] Sodium [Moles/Vol] 142 mmol/L 134 - 146 mmol/L [facility] Urea nitrogen [Mass/Vol] 12 mg/dL 5 - 23 mg/dL [facility] E2 [Mass/Vol]on 09-26-2023 ESTRADIOL <15.0 Normal [facility] Comment on above: Result Comment: NON- FEMALES [...] using this assay. Performed By: #### C , 44083-3, 07293-1, 2243-4, 03476-1 #### [facility] ([id number]) [address] [place] [address], [facility] [address] [place] [address] Estradiolon 09-26-2023 E2 [Mass/Vol] pg/mL pg/mL [facility] Comment on above: NON- FEMALES Mid follicular: 25-115 pg/mL Ovulatory [...] on estradiol recovery when using this assay. Follicle stimulating hormone on 09-26-2023 Follitropin Qn 71.7 m[IU]/mL mIU/mL [facility] Comment on above: NORMAL FEMALE Luteal 1.8-5.1 mIU/mL Follicular 3.8-8.8 mIU/mL Mid Cycle 4.5-22.5 mIU/mL [facility] 16.7-113.6 mIU/mL Follitropin Qnon 09-26-2023 [facility] FOLLICLE STIM HORMONE 71.7 mIU/mL Normal [facility] Comment on above: Result Comment: NORMAL FEMALE Luteal 1.8-5.1 mIU/mL Follicular 3.8-8.8 mIU/mL Mid Cycle 4.5-22.5 mIU/mL [facility] 16.7-113.6 mIU/mL Performed By: #### C , 56353-6, 27203-7, 2243-4, 79218-8 #### [facility] ([id number]) [address] [place] [address], [address] [place] [address] Lipid 1996 panelon 4 Cholesterol [Mass/Vol] 137 mg/dL Low 150 - 200 mg/dL [facility] Cholesterol in HDL [Mass/Vol] 74 mg/dL 39 - PINF mg/dL [facility] Comment on above: HDL <40 mg/dL - High Risk HDL > or = 40mg/dL- Desirable HDL >60 mg/dL - Negative Risk Cholesterol in LDL [Mass/Vol] 48 mg/dL NINF - 130 mg/dL [facility] Comment on above: LDL <100 mg/dL - Desirable LDL >160 mg/dL - High Risk Cholesterol in VLDL [Mass/Vol] 15 mg/dL 0 - 30 mg/dL [facility] Cholesterol.total/Ch olesterol in HDL [Mass ratio] 1.9 {ratio} 1.0 - 5.0 [facility] Interpretation and review of laboratory results Abnormal [facility] Triglyceride [Mass/Vol] 73 mg/dL 27 - 150 mg/dL [facility] Cholesterol [Mass/Vol] 137 mg/dL Low 150-200 [facility] Comment on above: Performed By: ###[place], [address]-0, 08270-2, 2243-4, 07314-4 #### [facility] ([id number]) [address] [place] [address] [address] [place] [address] Cholesterol in HDL [Mass/Vol] 74 mg/dL Normal >39 [facility] Comment on above: Result Comment: HDL <40 mg/dL - High Risk HDL > or = 40mg/dL- Desirable HDL >60 mg/dL - Negative Risk Performed By: #### Quintin JESSICA, 16788-9, 85278-7, 2243-4, 16503-6 #### [facility] ([id number]) [address] [place] [address] [address] [place] [address] Cholesterol in LDL [Mass/Vol] 48 mg/dL Normal <130 [facility] Comment on above: Result Comment: LDL <100 mg/dL - Desirable LDL >160 mg/dL - High Risk Performed By: #### C ARACELY, 24540-4, 87233-1, 2243-4, 81357-6 #### [facility] ([id number]) [address], [facility] [address] [place] [address] Cholesterol in VLDL [Mass/Vol] 15 mg/dL Normal 0-30 [facility] Comment on above: Performed By: #### Quintin JESSICA, 84164-9, 09683-8, 2243-4, 28979-9 #### [facility] ([id number]) [address], [address] [address] CHOLESTEROL:HDL 1.9 Normal 1.0-5.0 [facility] Comment on above: Performed By: #### Quintin JESSICA, 07678-4, 14382-7, 2243-4, 91671-4 #### [facility] ([id number]) [address] [address] Triglyceride [Mass/Vol] 73 mg/dL Normal 27-150 [facility] Comment on above: Performed By: #### Quintin JESSICA, 06910-1, 31107-3, 2243-4, 13006-2 #### [facility] ([id number]) [address] [address] Luteinizing hormoneon 2023 Lutropin Qn 52.7 m[IU]/mL mIU/mL [facility] Comment on above: NORMAL FEMALE Follicular 2.1-10.9 mIU/mL Mid Cycle 19.2-103 mIU/mL Luteal 1.2-12.9 mIU/mL [facility] 10.9-58.6 mIU/mL Lutropin Qnon 09-26-2023 LUTEINIZING HORMONE 52.7 mIU/mL Normal [facility] Comment on above: Result Comment: NORMAL FEMALE Follicular 2.1-10.9 mIU/mL Mid Cycle 19.2-103 mIU/mL Luteal 1.2-12.9 mIU/mL [facility] 10.9-58.6 mIU/mL Performed By: #### [place], 81572-6, 28632-6, 2243-4, 13021-6 #### [facility] ([id number]) [address] [place] [address], [address] [place] [address] No Panel Informationon 09-[address] [facility] TSHon 09-26-2023 TSH Qn 1.59 m[IU]/L [facility] TSH Qnon 09-26-2023 [facility] TSH 1.59 uIU/mL Normal 0.49-4.67 [facility] Comment on above: Performed By: #### 3 016-3 #### [facility] ([id number]) [address] [place] [address], [address] [place] [address] Hemoglobin A1Con 12-19-2019 HbA1c (Bld) [Mass fraction] 5.1 % Normal 4.0-6.0 [facility] Comment on above: Performed By: #### G LUF, LIPR, TSH, GLYHGB #### [facility] [employer] [address] [place] [address] [phone] Machine Strap Buckler: Saad Mercedes MD HbA1c (Bld) [Mass fraction] 100 mg/dL Normal [facility] Comment on above: Result Comment: The ADA and AACC recommend providing the estimated average glucose result to permit better patient understanding of their HBA1c result. Performed By: #### G LUF, LIPR, TSH, GLYHGB #### [facility] [address] [place] [address] Machine St[employer] Buckler: Saad Mercedes MD Glucose, Fastingon 0 Glucose [Mass/Vol] 85 mg/dL Normal 70-99 [facility] Comment on above: Performed By: #### G LUF, LIPR, TSH, GLYHGB #### [facility] [address] [place] [phone] Machine Strap Buckler: Saad Mercedes MD Lipid Profileon 12-18-2019 Cholesterol [Mass/Vol] 140 mg/dL Normal <200 [facility] Comment on above: Result Comment: Cholesterol Guidelines: <200 Desirable 200-240 Borderline >240 Undesirable Performed By: #### G LUF, LIPR, TSH, GLYHGB #### [facility] [address] [place] [phone] Machine St[employer] Buckler: Saad Mercedes MD Cholesterol in HDL [Mass/Vol] 61 mg/dL Normal >40 [facility] Comment on above: Result Comment: HDL Guidelines: <40 Undesirable 40-59 Borderline >59 Desirable Performed By: #### G LUF, LIPR, TSH, GLYHGB #### [facility] [address] [place] [phone] Machine St[employer] Buckler: Saad Mercedes MD Cholesterol in LDL [Mass/Vol] 64 mg/dL Normal 0-130 [facility] Comment on above: Result Comment: LDL Guidelines: <100 Desirable 100-129 Near to/above Desirable 130-159 Borderline >159 Undesirable Direct (measured) LDL and calculated LDL are not interchangeable tests. Performed By: #### G LUF, LIPR, TSH, GLYHGB #### [facility] [address] [place] [address] Machine [employer] Buckler: Saad Mercedes MD Cholesterol.total/Ch olesterol in HDL [Mass ratio] 2.3 {ratio} Normal <5 [facility] Comment on above: Performed By: #### G LUF, LIPR, TSH, GLYHGB #### [address] [phone] Machine St[employer] Buckler: Saad Mercedes MD Triglyceride [Mass/Vol] 74 mg/dL Normal <150 [facility] Comment on above: Result Comment: Triglyceride Guidelines: <150 Desirable 150-199 Borderline 200-499 High >499 Very high Based on AHA Guidelines for fasting triglyceride, February 2012. Performed By: #### G LUF, LIPR, TSH, GLYHGB #### [facility] [employer] [address] [place] [id number] Machine Strap Buckler: Saad Mercedes MD Cholesterol in VLDL [Mass/Vol] NOT REPORTED Normal 30 [facility] Comment on above: Performed By: #### G LUF, LIPR, TSH, GLYHGB #### [facility] [employer] [address] [place] [phone] Machine Strap Buckler: Saad Mercedes MD Thyroid Stim. Horm.on 2019 TSH Qn 1.66 m[IU]/L Normal 0.30-5.00 [facility] Comment on above: Performed By: #### G LUF, LIPR, TSH, GLYHGB #### [facility] [employer] [address] [place] [phone] Machine Strap Buckler: Saad Mercedes MD Vital Signs Date Time Vital Sign Value Performing Clinician Facility 07-08-2024 11:29-0500 Body height 162.6 cm [employer] Work Phone: [facility] [employer] 07-08-2024 11:29-0500 Body mass index (BMI) [Ratio] 23.95 kg/m2 [employer] Work Phone: [facility] 07-08-2024 11:29-0500 Body temperature 97.7 [degF] [facility] 07-08-2024 11:29-0500 Body weight 63.32 kg Bryan Chatmanlong DO Work Phone: [facility] [employer] 07-08-2024 11:29-0500 Diastolic blood pressure 70 mm[Hg] Bryan Chatmanlong DO Work Phone: [facility] 07-08-2024 11:29-0500 Heart rate 97 /min Bryan [facility]manlong DO [facility] 07-08-2024 11:29-0500 Respiratory rate 18 /min Bryan Chatmanlong DO Work Phone: [facility] [employer] 07-08-2024 11:29-0500 SaO2% (BldA) [Mass fraction] 99 % Bryan Brooksng DO Work Phone: [facility] [employer] 07-08-2024 11:29-0500 Systolic blood pressure 98 mm[Hg] Bryan Brooksng DO Work Phone: [facility] 05-09-2024 10:42-0500 Body height 162.6 cm Donavan Sams APRN-STUCCO APPLICATOR Work Phone: [facility] 05-09-2024 10:42-0500 Body mass index (BMI) [Ratio] 25.51 kg/m2 Donavancierra Sams CARVER HAND-STUCCO APPLICATOR Work Phone: [facility] 05-09-2024 10:42-0500 Body temperature 97.7 [degF] Donavan Sams CARVER HAND-STUCCO APPLICATOR Work Phone: [facility] 05-09-2024 10:42-0500 Body weight 67.41 kg Donavan Sams CARVER HAND-STUCCO APPLICATOR Work Phone: [facility] 05-09-2024 10:42-0500 Diastolic blood pressure 50 mm[Hg] Donavan Latrell CARVER HAND-STUCCO APPLICATOR Work Phone: [facility] 05-09-2024 10:42-0500 Heart rate 90 /min Donavan GANT Work Phone: [facility] 05-09-2024 10:42-0500 Respiratory rate 18 /min Donavan GANT Work Phone: [facility] 05-09-2024 10:42-0500 SaO2% (BldA) [Mass fraction] 98 % Donavan GANT Work Phone: [facility] 05-09-2024 10:42-0500 Systolic blood pressure 90 mm[Hg] Donavan GANT Work Phone: [facility] 04-02-2024 17:20-0500 Body mass index (BMI) [Ratio] 22.49 kg/m2 Bryan Chatmanlong DO Work Phone: [facility] 04-02-2024 17:20-0500 Body weight 59.42 kg Bryan Furlong DO Work Phone: [facility] 04-02-2024 17:20-0500 Diastolic blood pressure 48 mm[Hg] Bryan Furlong DO Work Phone: [facility] 04-02-2024 17:20-0500 Heart rate 60 /min Bryan Furlong DO Work Phone: [facility] 04-02-2024 17:20-0500 Systolic blood pressure 114 mm[Hg] Bryan Furlong DO Work Phone: [facility] 12-28-2023 14:29-0400 Body height 162.6 cm Bryan Furlong DO Work Phone: [facility] 12-28-2023 14:29-0400 Body mass index (BMI) [Ratio] 23.64 kg/m2 Bryan Furlong DO Work Phone: [facility] 12-28-2023 14:29-0400 Body temperature 98.01 [degF] Bryan Furlong DO Work Phone: [facility] 12-28-2023 14:29-0400 Body weight 62.46 kg Bryan Furlong DO Work Phone: [facility] 12-28-2023 14:29-0400 Diastolic blood pressure 60 mm[Hg] Bryan Furlong DO Work Phone: [facility] 12-28-2023 14:29-0400 Heart rate 106 /min Bryan Furlong DO Work Phone: [facility] 12-28-2023 14:29-0400 Respiratory rate 18 /min Bryan Furlong DO Work Phone: [facility] 12-28-2023 14:29-0400 SaO2% (BldA) [Mass fraction] 99 % Bryan Furlong DO Work Phone: [facility] 12-28-2023 14:29-0400 Systolic blood pressure 90 mm[Hg] Bryan Furlong DO Work Phone: [facility] 10-23-2023 15:54-0400 Body height 162.6 cm Bryan Furlong DO Work Phone: [facility] 10-23-2023 15:54-0400 Body mass index (BMI) [Ratio] 23.82 kg/m2 Bryan Furlong DO Work Phone: [facility] 10-23-2023 15:54-0400 Body temperature 97.59 [degF] Bryan Furlong DO Work Phone: [facility] 10-23-2023 15:54-0400 Body weight 62.96 kg Bryan Furlong DO Work Phone: [facility] 10-23-2023 15:54-0400 Diastolic blood pressure 70 mm[Hg] Bryan Furlong DO Work Phone: [facility] 10-23-2023 15:54-0400 Heart rate 75 /min Bryan Furlong DO Work Phone: [facility] 10-23-2023 15:54-0400 SaO2% (BldA) [Mass fraction] 97 % Bryan Furlong DO Work Phone: [facility] 10-23-2023 15:54-0400 Systolic blood pressure 112 mm[Hg] Bryan Furlong DO Work Phone: [facility] 09-26-2023 15:00-0400 Body height 162.6 cm Bryan Furlong DO Work Phone: [facility] 09-26-2023 15:00-0400 Body mass index (BMI) [Ratio] 24.46 kg/m2 Bryan Furlong DO Work Phone: [facility] 09-26-2023 15:00-0400 Body temperature 97.9 [degF] Bryan Furlong DO Work Phone: [facility] 09-26-2023 15:00-0400 Body weight 64.64 kg Bryan Furlong DO Work Phone: [facility] 09-26-2023 15:00-0400 Diastolic blood pressure 64 mm[Hg] Bryan Furlong DO Work Phone: [facility] 09-26-2023 15:00-0400 Heart rate 97 /min Bryan Furlong DO Work Phone: [facility] 09-26-2023 15:00-0400 Respiratory rate 18 /min Bryan Furlong DO Work Phone: [facility] 09-26-2023 15:00-0400 SaO2% (BldA) [Mass fraction] 100 % Bryan Furlong DO Work Phone: [facility] 09-26-2023 15:00-0400 Systolic blood pressure 96 mm[Hg] Bryan Jones DO Work Phone: [facility] 05-04-2023 17:16-0500 Diastolic blood pressure 65 mm[Hg] Jany Hernandezoud DO Work Phone: [employer] 05-04-2023 17:16-0500 Heart rate 94 /min Jany Roldand DO Work Phone: [employer] 05-04-2023 17:16-0500 Respiratory rate 16 /min Jany Roldand DO Work Phone: [employer] 05-04-2023 17:16-0500 SaO2% (BldA) [Mass fraction] 97 % Jany Roldand DO Work Phone: [employer] 05-04-2023 17:16-0500 Systolic blood pressure 98 mm[Hg] Jany Hernandezoud DO Work Phone: [employer] 05-04-2023 17:13-0500 Body height 162.6 cm Jany Roldand DO Work Phone: [employer] 05-04-2023 17:13-0500 Body mass index (BMI) [Ratio] 27.46 kg/m2 Jany Roldand DO Work Phone: [employer] 05-04-2023 17:13-0500 Body temperature 97.7 [degF] Jany Roldand DO Work Phone: [employer] 05-04-2023 17:13-0500 Body weight 72.58 kg Jany Roldand DO Work Phone: [employer] Encounters Encounter Date Encounter Type Care Provider Facility Start: 07-28-2024 End: 07-29-2024 Refill Bryan Jones DO Work Phone: [facility] Comment on above: Attention deficit hy peractivity disorder (ADHD), unspecified ADHD type Start: 07-10-2024 End: 07-10-2024 Refill Bryan Chatmanrodger DO Work Phone: [facility] Start: 07-08-2024 End: 07-08-2024 Office outpatient visit 25 minutes Bryan [facility] [place] [facility] Comment on above: Attention deficit hy peractivity disorder (ADHD), unspecified ADHD type (Primary Dx); Left wrist pain; Anxiety; Medication monitoring encounter Start: 07-08-2024 End: 07-08-[address] [facility] Start: 07-02-2024 End: 07-02-2024 Refill Elsy Hyman CMA [facility] Comment on above: Attention deficit hy peractivity disorder (ADHD), unspecified ADHD type Start: 05-28-2024 End: 05-28-2024 Orders Only Donavan Sams CARVER HAND-STUCCO APPLICATOR Work Phone: [facility] Start: 05-27-2024 End: 05-30-2024 Orders Only Donavan Odalys Sams CARVER HAND-STUCCO APPLICATOR [facility] Comment on above: Attention deficit hy peractivity disorder (ADHD), unspecified ADHD type Start: 05-09-2024 End: 05-09-2024 Office outpatient visit 25 minutes Donavan Sams CARVER HAND-STUCCO APPLICATOR Work Phone: [facility] Comment on above: Encounter for gyneco logical examination without abnormal finding (Primary Dx); Post-menopausal bleeding; Primary osteoarthritis of right hip; Smoker; Epidermoid cyst; Skin cancer screening Start: 05-09-2024 End: 05-09-2024 Patient encounter status Donavan Sams CARVER HAND-STUCCO APPLICATOR Work Phone: [facility] Start: 05-09-2024 End: 05-09-2024 ambulatory [facility] Start: 05-09-2024 End: 05-09-2024 ambulatory DONAVAN SAMS [facility] Start: 05-09-2024 Encounter for gynecological examination (general) (routine) without abnormal findings [facility] Start: 05-03-2024 End: 05-06-2024 Refill [facility] Start: 04-02-2024 End: 04-02-2024 Office outpatient visit 15 minutes Bryan Jones DO Work Phone: [facility] Comment on above: Attention deficit hy peractivity disorder (ADHD), unspecified ADHD type (Primary Dx); Anxiety; Primary osteoarthritis of right hip Start: 04-02-2024 End: 04-02-[address] [facility] Start: 03-31-2024 End: 04-01-2024 Refill rByan Jones DO [facility] Comment on above: Attention deficit hy peractivity disorder (ADHD), unspecified ADHD type Start: 02-27-2024 End: 02-28-2024 Refill Bryan Jonse DO [facility] Comment on above: Attention deficit hy peractivity disorder (ADHD), unspecified ADHD type Start: 02-21-2024 End: 02-22-2024 Telephone encounter Bryan Jones DO [facility] Start: 02-01-2024 End: 02-01-2024 Refill Keya Kadeem MILITARY SCIENCE INSTRUCTOR [facility] Comment on above: Attention deficit hy peractivity disorder (ADHD), unspecified ADHD type Start: 01-27-2024 End: 01-29-2024 Refill Bryan Jones DO Work Phone: [facility] Comment on above: Attention deficit hy peractivity disorder (ADHD), unspecified ADHD type Start: 01-23-2024 End: 01-23-2024 Telephone encounter Shauna Mckeon [facility] Comment on above: Preventative Christiei rodger Start: 01-17-2024 End: 01-17-[address] [facility] Start: 12-28-2023 End: 12-28-2023 Office outpatient visit 25 minutes Bryandiandra Jones DO Work [facility]: [facility] Comment on above: Attention deficit hy peractivity disorder (ADHD), unspecified ADHD type (Primary Dx); Primary osteoarthritis of right hip; Inguinal mass; Seborrheic keratosis Start: 12-28-2023 End: 12-28-2023 [facility] Start: 12-21-2023 End: 12-26-2023 Telephone encounter Elsy Hyman [facility] Start: 11-20-2023 End: 11-21-2023 Refill Bryan Guzman [place] DO Work Phone: [facility] Comment on above: Attention deficit hy peractivity disorder (ADHD), unspecified ADHD type Start: 10-23-2023 End: 10-23-2023 Office outpatient visit 25 minutes Bryan Jones DO [facility] Comment on above: Attention deficit hy peractivity disorder (ADHD), unspecified ADHD type (Primary Dx); Primary osteoarthritis of both hips; Perimenopause; Anxiety Start: 10-23-2023 End: 10-23-[address] [facility] Start: 10-05-2023 End: 10-05-[address] [facility] Start: 09-28-2023 End: 09-28-2023 [facility] Start: 09-26-2023 End: 09-27-2023 ambulatory [facility] Start: 09-26-2023 Encounter for genera l adult medical examination without abnormal findings [facility] Start: 09-26-2023 End: 09-26-2023 Office outpatient new [facility] Work Phone: [facility] Comment on above: [facility] (Primary Dx); Perimenopause; Hypothyroidism, unspecified type; Attention deficit hyperactivity disorder (ADHD), unspecified ADHD type; Right hip pain; Encounter for screening mammogram for malignant neoplasm of breast; Screen for colon cancer Start: 09-26-2023 End: 09-26-2023 Patient encounter status [facility] Work Phone: [facility] [employer] Work Phone: Start: 09-26-2023 End: 09-26-[address] [facility] Start: 09-26-2023 Encounter for genera l adult medical examination without abnormal findings [facility] Start: 07-07-2023 ambulatory Jeremie Klein acility:[facility] Start: 07-07-2023 End: 07-07-2023 Emergency department patient visit [facility] Start: 07-07-2023 Encounter for other general examination [facility] Start: 05-04-2023 End: 05-04-2023 Emergency department patient visit NEETA ACOSTA [facility] Start: 05-04-2023 End: 05-04-2023 Emergency department patient visit Jany Roldand DO Work Phone: [facility] Comment on above: Pain, dental (Primar y Dx); Dental abscess; Dental caries Start: 12-01-2021 End: 07-06-2022 ambulatory [facility] Start: 06-04-2020 Patient encounter procedure SÁNCHEZ DENIS Facility: Start: 12-18-2019 End: 12-19-2019 Patient encounter procedure MARY PERALTA [facility] Procedures Date Procedure Procedure Detail Performing Clinician Start: 07-08-2024 Adult depression scr eening assessment Bryan Chatmanlong DO Work Phone: Start: 05-09-2024 Microscopic observat ion [Identifier] in Cervix by Cyto stain Donavan Sams CARVER HAND-STUCCO APPLICATOR Work Phone: Start: 12-28-2023 Follow-up visit Follow-up BRYAN JONES Start: 12-28-2023 Adult depression scr eening assessment Bryan Chatmanlong DO Work Phone: Start: 10-23-2023 Adult depression scr eening assessment Bryan Brooksng DO Work Phone: Start: 10-05-2023 Mammography Bryan Chatman long DO Work Phone: Start: 09-26-2023 Adult depression scr eening assessment Bryan Chatmanlong DO Work Phone: Start: 02-02-2022 Mammography Bryan Chatman long DO Work Phone: Start: 12-18-2019 Assay of thyroid stimulating hormone tsh MARY PERALTA Start: 12-18-[address] gtt 3 specimens MARY PERALTA Start: 12-18-2019 Hemoglobin glycosyla bernardino a1c MARY PEDERSONVAMackenzie Start: 12-18-2019 Lipid panel MARY PALOMINO [facility] Start: 08-28-2018 Microscopic observat ion [Identifier] in Cervix by Cyto stain Bryan Brooksng DO Work Phone: Plan of Treatment Date Care Activity Detail Author Start: 05-09-2027 Screening for malign ant neoplasm of cervix Pap Smear [facility] Start: 07-08-2025 Adult BMI Screening Adult BMI Screen ing [facility] Start: 07-08-2025 Depression Screening Depression Scre ening [facility] Start: 07-08-2025 Tobacco Screening Tobacco Screening [facility] Start: 05-09-2025 Adult BMI Screening Adult BMI Screen ing [facility] Start: 05-09-2025 Tobacco Screening Tobacco Screening [facility] Start: 04-02-2025 Adult BMI Screening Adult BMI Screen ing [facility] Start: 04-02-2025 Tobacco Screening Tobacco Screening [facility] Start: 12-27-2024 Adult BMI Screening Adult BMI Screen ing [facility] Start: 12-27-2024 Depression Screening Depression Scre ening [facility] Start: 12-27-2024 Tobacco Screening Tobacco Screening [facility] Start: 12-17-2024 Lipid panel Lipids [facility] Start: 10-22-2024 Adult BMI Screening Adult BMI Screen ing [facility] Start: 10-22-2024 Depression Screening Depression Scre ening [facility] Start: 10-22-2024 Tobacco Screening Tobacco Screening [facility] Start: 10-08-2024 End: 10-08-2024 Patient encounter procedure 10/08/2024 1:30 PM EDT [facility] [address] [place] [address] Bryan Jones DO [address] [facility] [place] [address] [facility] Start: 10-04-2024 Screening for malign ant neoplasm of breast Mammogram [facility] Start: 09-25-2024 Adult BMI Screening Adult BMI Screen ing [facility] Start: 09-25-2024 Depression Screening Depression Scre ening [facility] Start: 09-25-2024 Tobacco Screening Tobacco Screening [facility] Start: 07-11-2024 End: 07-11-2024 Patient encounter procedure 07/11/2024 2:20 PM EST [facility] [address] [place] [address] Donavan Sams, [employer] APPLICATOR [address] [address] [facility] - Family Medicine Start: 07-08-2024 End: 07-08-2025 XR Wrist - right 3 Views X-ray wrist right minimum 3 views Imaging Routine Left wrist pain Expected: 07/08/2024, Expires: 07/08/2025 [facility] Comment on above: Expected: 07/08/2024 , Expires: 07/08/2025 Start: 07-08-2024 End: 07-08-2024 Patient encounter procedure 07/08/2024 11:30 AM EST Office Visit [facility] - Family Medicine [address] [place] [address] Bryan Jones DO [address], [place] [address] [facility] - [facility] Start: 05-09-2024 End: 05-10-2025 US Pelvis transvaginal Ultrasound transvaginal non OB Imaging Routine Post-menopausal bleeding Expected: 05/09/2024, Expires: 05/10/2025 [facility] Work Phone: Comment on above: Expected: 05/09/2024 , Expires: 05/10/2025 Start: 05-09-2024 End: 05-09-2024 Patient encounter procedure 05/09/2024 10:40 AM EST Office Visit [facility] - Family Medicine [address] [place] [address] Donavan Sams, [employer]VER HAND-STUCC[employer] APPLICATOR [address] [place] [address] [facility] - [facility] Start: 04-02-2024 End: 04-02-2024 Patient encounter procedure 04/02/2024 3:30 PM EST Office Visit [facility] - Family Medicine [address] [place] [address] Bryan Jones DO [address], [place] [address] [facility] - [facility] Start: 03-08-2024 End: 03-08-2024 Patient encounter procedure 03/08/2024 11:20 AM EDT Office Visit [facility] Internal Medicine - Family Medicine [address] [place] [address] Donavan Sams, CARVER HAND-STUCCO APPLICATOR [address] [place] [address] [facility] Internal [facility] Medicine Start: 01-14-2024 Influenza vaccination Influenza Vacc ine [facility] Start: 01-03-2024 End: 01-03-2024 Patient encounter procedure 01/03/2024 3:00 PM EDT Appointment [facility] - Ultrasound [address] [place] [address] [facility] - Ultrasound Start: 12-28-2023 End: 12-28-2023 Patient encounter procedure 12/28/2023 2:30 PM EDT Office Visit [facility] Internal Medicine [facility] Medicine [address] [place] [address] Bryan Jones DO [address], [place] [address] [facility] Internal [facility] Start: 12-28-2023 End: 12-27-2024 US Extremity - right limited Ultrasound extremity non vascular limited right Imaging Routine Inguinal mass Expected: 12/28/2023, Expires: 12/27/2024 [facility] Work Phone: Comment on above: Expected: 12/28/2023 , Expires: 12/27/2024 Start: 11-23-2023 End: 11-23-2023 Patient encounter procedure 11/23/2023 2:45 PM EDT Office Visit [facility] Internal Medicine - Family Medicine [address] [place] [address] Bryan Jones DO [address], [place] [address] [facility] - Family Medicine Start: 09-26-2023 End: 09-25-2024 DBT Breast - bilateral screening Mammography screening bilateral with CAD Imaging Routine Encounter for screening mammogram for malignant neoplasm of breast Expected: 09/26/2023, Expires: 09/25/2024 [facility] Work Phone: Comment on above: Expected: 09/26/2023 , Expires: 09/25/2024 Start: 09-26-2023 End: 09-25-2024 XR Pelvis and Hip - right 2 Views X-ray hip right 2-3 views with or without pelvis Imaging Routine Right hip pain Expected: 09/26/2023, Expires: 09/25/2024 [facility] Comment on above: Expected: 09/26/2023 , Expires: 09/25/2024 Start: 02-02-2023 Screening for malign ant neoplasm of breast Mammogram [facility] Start: 12-17-2022 Diabetes screen Diabetes screen [facility] Start: 12-13-2022 Influenza vaccination Flu vaccine (# 1) [facility] Start: 08-28-2021 Screening for malign ant neoplasm of cervix Pap Smear [facility] Start: 2020 Screening for malign ant neoplasm of colon [facility] Start: 2005 Screening for malign ant neoplasm of cervix [facility] Start: 1996 Screening for malign ant neoplasm of cervix Pap smear [facility] Start: 1994 DTaP,Tdap and Td Vaccines (1 - Tdap) DTaP,Tdap and Td Vaccines (1 - Tdap) [facility] Start: 1994 DTaP/Tdap/Td vaccine (1 - Tdap) DTaP/Tdap/Td vaccine (1 - Tdap) [facility] Start: 1993 Adult BMI Follow Up Plan Adult BMI Follow Up Plan [facility] Start: 1993 Hepatitis C screening Hepatitis C sc reen [facility] Start: 1990 HIV screening HIV screen [facility] Start: 1987 Depression Screen Depression Screen [facility] Start: 1981 Pneumococcal 0-64 ye ars Vaccine (1 - PCV) Pneumococcal 0-64 years Vaccine (1 - PCV) [facility] Start: 1975 COVID-19 Vaccine (#1) COVID-19 Vacci ne (#1) [facility] Start: 1975 Hepatitis B vaccine (1 of 3 - 3-dose series) Hepatitis B vaccine (1 of 3 - 3-dose series) [facility] Start: 1975 Tobacco Counseling Tobacco Counselin g [facility] Cologuard [facility] Cologuar d [facility] Lab Routine Screen for colon cancer Ordered: 09/26/2023 [facility] Comment on above: Ordered: 09/26/2023 End: 05-09-2025 Cytopathology procedure, preparation of smear, genital source Pap Smear Pathology and Cytology Routine Encounter for gynecological examination without abnormal finding 1 Occurrences starting 05/09/2024 until 05/09/2025 [facility] Comment on above: 1 Occurrences starti ng 05/09/2024 until 05/09/2025 End: 07-08-2025 Drug Screen, Urine Drug Screen, Urine Lab Routine Attention deficit hyperactivity disorder (ADHD), unspecified ADHD type Medication monitoring encounter 1 Occurrences starting 07/08/2024 until 07/08/2025 [facility]: Comment on above: 1 Occurrences starti ng 07/08/2024 until 07/08/2025 Payers Date Payer Category Payer Self-pay 2022 Medicaid [id number] 2022 Medicaid [id number] 1. [id number] 2021 Unknown [id number] 1975 Unknown [id number] 2.16.8 [id number] 1975 Unknown [id number] 2.16.84 0.1.305939.3.579.2.593 1975 Unknown [id number] 2.16.8 40.1.421843.3.579.2.177 1975 Unknown [id number] 2.16.8 40.1.709989.3.579.2.1285 1975 Unknown [id number] 2.16.8 40.1.155204.3.579.2.1285 1975 Unknown [id number] 2.16.8 40.1.909825.3.579.2.1285 1975 Unknown [id number] 2.16.8 40.1.351442.3.579.2.1285 1975 Unknown [id number] 2.16.8 40.1.023228.3.579.2.1285 1975 Unknown [id number] 2.16.8 40.1.571719.3.579.2.1285 1975 Unknown [id number] 2.16. 840.1.518339.3.579.2.1285 1975 Unknown [id number] 2.16.8 40.1.815643.3.579.2.1285 1975 Unknown [id number] 2.16.8 40.1.085787.3.579.2.1285 1975 Unknown [id number] 2.16.8 40.1.557717.3.579.2.1285 1975 Unknown [id number] 2.16.8 40.1.574184.3.579.2.1285 1975 Unknown [id number] 2.16.8 [id number] 1959 Unknown [id number] Unknown [id number] 2.16.8 [id number] Social History Date Type Detail Facility Start: 05-26-1987 End: 09-26-2023 Tobacco smoking status NHIS Smokes tobacco daily [facility] Start: 05-26-1987 History of tobacco use Cigarette Smo ker [facility] Start: 12-18-2019 End: 09-26-2023 Tobacco use and exposure Smokeless tobacco non-user [facility] Start: 12-18-2019 End: 07-08-2024 Alcohol intake Current drinker of alcohol (finding) [facility] Start: 12-18-2019 End: 10-06-2021 History of Social function [facility] Start: 12-18-2019 End: 10-06-2021 Tobacco use panel [facility] Start: 12-18-2019 Alcohol Comment rare [facility] Start: 1975 Sex Assigned At Not on file [facility] History of tobacco use Cigar Smoker [facility] Has the [employer], oil, or water company threatened to shut off services in your home in past 12Mo No [facility] Are you now , , , , never or living with a partner? Never [facility] How often to you hav e a drink containing alcohol? 2-4 times a month [facility] How many standard drinks containing alcohol do you have on a typical day? 1 or 2 [facility] How often do you hav e 6 or more drinks on 1 occasion? Never [facility] How hard is it for y ou to pay for the very basics like food, housing, medical care, and heating Very hard [facility] Adolescent depressio n screening assessment 0 [facility] Do you feel stress - tense, restless, nervous, or anxious, or unable to sleep at night because your mind is troubled all the time - these days [OSQ] Very much [facility] Start: 10-06-2021 Education 16 [facility] Start: 09-26-2023 Tobacco Comment Quit for a yea r with each [facility] Start: 04-11-2018 Alcohol Comment socially [facility] Start: 1975 Sex assigned at Female P [facility] Start: 12-18-2014 Sex Female (finding) [facility] Start: 05-08-2021 Gender identity Identifies as female gender (finding) [facility] Start: 05-08-2021 Sexual orientation Heterosexual (dominik victoria) [facility] Medical Equipment Procedure Code Equipment Code Equipment Origin al Text Equipment Identifier Dates Jil Spring Rpl [id number] - [id number] Start: 02-01-2017 Clinical Notes 05-04-2023 to 07-08-2024 Bryan Jones, DO - 07/08/2024 11:30 AM GUANACODonavan Morrow Latrell, [facility] - 05/09/2024 10:40 AM Chasidy Jones, DO - 04/02/2024 3:30 PM Chasidy Jones, DO - 12/28/2023 2:30 PM EDT Note Date & Type Note Facility 07-08-2024 History of Presen t illness Narrative Images from the original note were not included. Subjective Patient ID: Deshaun Almonte is a 49 y.o. female. Deshaun presents for controlled substance recheck. She is taking Adderall everyday. She has no side effects. It is helping her focus. She is having left wrist pain off and on for a couple months. Around the wrist and top of hand. No numbness. She does recall falling off her son's futon a couple months ago. Pain is an 8 on scale 1-10. She does have meloxicam at home but has not taken it for this pain. She stopped seeing her specialist for psych. She would like me to take over her hydroxyzine. She uses it as needed. 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 Apparently she needs it every 3 months. She has not gotten her license yet because of finances. The following portions of the patient's history were reviewed and updated as appropriate: allergies, current medications, past family history, past medical history, past social history, past surgical history, problem list, and medication reconciliation was completed including current medication and post discharge medication. Review of Systems Constitutional: Negative. HENT: Negative. Eyes: Negative. Respiratory: Negative. Cardiovascular: Negative. Gastrointestinal: Negative. Endocrine: Negative. Genitourinary: Negative. Musculoskeletal: Positive for arthralgias. Skin: Negative. Neurological: Negative. Psychiatric/Behavioral: The patient is nervous/anxious. Objective Physical Exam Vitals reviewed. Exam conducted with a plate colorer present (Jerrod Freeman MS 3). Constitutional: General: She is not in acute distress. Appearance: She is not ill-appearing. Comments: Does not appear to be in pain 8 out of 10. She is pleasant and smiling. HENT: Head: Normocephalic. Eyes: General: No scleral icterus. Extraocular Movements: Extraocular movements intact. Conjunctiva/sclera: Conjunctivae normal. Cardiovascular: Rate and Rhythm: Normal rate and regular rhythm. Pulses: Normal pulses. Heart sounds: Normal heart sounds. No murmur heard. Pulmonary: Effort: Pulmonary effort is normal. Breath sounds: Normal breath sounds. Musculoskeletal: Left wrist: Tenderness and bony tenderness present. No swelling, deformity, effusion, lacerations, snuff box tenderness or crepitus. Normal range of motion. Normal pulse. Arms: Cervical back: Neck supple. Comments: Pain diffusely over the back of hand and around the circumference of her wrist. Seemed to be more tender around the ulnar styloid but no deformity. Neurological: General: No focal deficit present. Mental Status: She is alert and oriented to person, place, and time. Psychiatric: Mood and Affect: Mood normal. Behavior: Behavior normal. Thought Content: Thought content normal. Judgment: Judgment normal. Assessment/Plan Deshaun was seen today for controlled medication/ note to drive/ left wrist pain. Diagnoses and all orders for this visit: Attention deficit hyperactivity disorder (ADHD), unspecified ADHD type - Drug Screen, Urine; Future Stable. Check urine for presence of medication and drugs of abuse. The OARRS/MAPPS database was reviewed today and found to be appropriate. No indication of medication diversion, or non compliance. Left wrist pain - X-ray wrist right minimum 3 views; Future She has vague left pain which is quite severe based on her qualification of the pain scale. Therefore we will check an x-ray to make sure there was nothing more serious going on. Encouraged her to use meloxicam for this pain and see if it helps. Can also use Tylenol or topical agents. May need to see the specialist. Anxiety Stable on hydroxyzine p.r.n.. Medication monitoring encounter - Drug Screen, Urine; Future Check for presence of medication and drugs of abuse. documented in this encounter [facility] 05-09-2024 History of Presen t illness Narrative [...] years. She did mention this to her extrusion process operator in the past. Patient also has skin [...] since. Last pap: Two years ago with extrusion process operator, normal Regular self breast exam: yes Last [...] 02/01/2017 Performed by Xiao Mendoza MD at [facility] SURGERY RELEASE TRIGGER FINGER THUMB Right 11/18/2020 Performed by Gregory Corrigan MD at [facility] SALPINGOOPHORECTOMY Right THYROID SURGERY FAMILY HX [...] BMI 25.51 kg/m Physical Exam Vitals reviewed. Interior Paneler present: Interior Paneler declined. Constitutional: Appearance: Normal appearance. HENT: Head: [...] APRN-CNP 05/09/24 1304 documented in this encounter [facility] 04-02-2024 History of Presen t illness Narrative Subjective Video Visit via Real-time Synchronous Audiovisual Provider Location: [facility] - FAMILY MEDICINE [address] [facility] [address] Patient Location: Friend's house Video Visit Consent [...] that there are some limitations compared to pill-ov-bkem evaluations. The patient consented to the presence of additional virtual and/or in-person participants. We elected to proceed. Patient ID: Deshaun Almonte is a 48 y.o. female. Deshaun agreed to a telehealth visit to recheck ADD, anxiety and chronic back pain. She did not hear from the [place] pain management after I sent the referral [...] her referral. documented in this encounter [facility] 04-02-2024 Miscellaneous Notes Addended by: BRYAN JONES on: 04/02/2024 05:36 PM Modules accepted: Orders documented in this encounter [facility] 04-02-2024 Note Addended by: BRYAN JONES on: 04/02/2024 05:36 PM Modules accepted: Orders [facility] 02-21-2024 Miscellaneous Notes Reschedule 03/08 appt LM on VM LM on VM Rescheduled documented in this encounter [facility] 02-21-2024 Telephone encounter Note Reschedule 03/08 appt [facility] 02-21-2024 Telephone encounter Note LM on VM [facility] 02-21-2024 Telephone encounter Note LM on VM [facility] 02-21-2024 Telephone encounter Note Rescheduled [facility] 02-01-2024 Miscellaneous Notes Pt is moving to [place] and [facility] documented in this encounter [facility] 02-01-2024 Telephone encounter Note Pt is moving to [place] and [facility] 01-23-2024 Miscellaneous Notes Care Coordination Outreach performed to coordinate overdue appointments, testing, and/or follow-up care: Yes Audit/Outreach Date: January 23, 2024 Reason: Colorectal Cancer Screening Method: Telephone and MyChart Outreach Attempt: First Outcome: Left Message and Letter Sent Next PCP Appointment: Has Next PCP Appt Tests/Referrals Pended: N/A Resources/Education Provided: Additional Comments: Left message for patient to contact wound care rn. Patient is overdue with cologuard order. Will send letter to patient. documented in this encounter [facility] 01-23-2024 Telephone encounter Note Care Coordination Outreach performed to coordinate overdue appointments, testing, and/or follow-up care: Yes Audit/Outreach Date: January 23, 2024 Reason: Colorectal Cancer Screening Method: Telephone and MyChart Outreach Attempt: First Outcome: Left Message and Letter Sent Next PCP Appointment: Has Next PCP Appt Tests/Referrals Pended: N/A Resources/Education Provided: Additional Comments: Left message for patient to contact wound care rn. Patient is overdue with cologuard order. Will send letter to patient. [facility] 12-28-2023 History of Presen t illness Narrative Images from the original note were not included. Subjective Patient ID: Deshaun Almonte is a 48 y.o. female. Deshaun presents for recheck of ADD and hip OA. She is still having trouble concentrating. She has unfinished projects she would like to get done. 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 She isn't motivated. She has trouble following through with projects. Her mind races. She would like to increase her Adderall. She also has a newer skin lesion on her upper back she would like checked. She also feels a lump in her right groin. She has pain there. She has known arthritis of her right hip. She had too many missed appointments with pain management in [place] and they won't see her again. She would still like to go see pain management. She is agreeable to go to [place]. Follow-up Associated symptoms include arthralgias. The following portions of the patient's history were reviewed and updated as appropriate: allergies, current medications, past family history, past medical history, past social history, past surgical history, problem list, and medication reconciliation was completed including current medication and post discharge medication. Review of Systems Constitutional: Negative. HENT: Negative. Eyes: Negative. Respiratory: Negative. Cardiovascular: Negative. Gastrointestinal: Negative. Endocrine: Negative. Genitourinary: Negative. Musculoskeletal: Positive for arthralgias. Skin: Negative. Neurological: Negative. Hematological: Negative. Psychiatric/Behavioral: Positive for decreased concentration and sleep disturbance. Negative for suicidal ideas. The patient is nervous/anxious and is hyperactive. Objective Physical Exam HENT: Head: Normocephalic. Cardiovascular: Rate and Rhythm: Normal rate and regular rhythm. Pulses: Normal pulses. Heart sounds: Normal heart sounds. Pulmonary: Effort: Pulmonary effort is normal. No respiratory distress. Breath sounds: Normal breath sounds. No wheezing, rhonchi or rales. Abdominal: General: Bowel sounds are normal. Palpations: Abdomen is soft. Musculoskeletal: General: Tenderness present. Cervical back: Neck supple. Right hip: Tenderness and crepitus present. Decreased range of motion. Skin: Findings: Lesion (3mm x 2mm brown plaque on right upper posterior thorax) and rash present. Rash is nodular (Small nodule in right inguinal areas is firm and not movable). Neurological: General: No focal deficit present. Mental Status: She is alert and oriented to person, place, and time. Psychiatric: Mood and Affect: Mood normal. Behavior: Behavior normal. Thought Content: Thought content normal. Judgment: Judgment normal. Assessment/Plan Deshaun was seen today for follow-up. Diagnoses and all orders for this visit: Attention deficit hyperactivity disorder (ADHD), unspecified ADHD type - amphetamine-dextroamphetamine XR (ADDERALL XR) 20 mg 24 hr capsule; Take 1 capsule (20 mg total) by mouth every morning. Max Daily Amount: 20 mg Her ADD is not under adequate control. She is still having symptoms. It is affecting her quality of life. Risks and benefits of medication discussed. It has a high risk medication with potential serious complications. She would like to increase it. She agrees to attempt to increase it. We will increase it to 20 mg daily. Primary osteoarthritis of right hip - Ambulatory referral to Pain Management ([facility]); Future Refer to pain management at [place]. Inguinal mass - Ultrasound extremity non vascular limited right; Future Check ultrasound of lesion. May not be anything as she has a similar finding on the left side but not as prominent. She is concerned that she has a low so we will check it out with an ultrasound. Seborrheic keratosis Appears to be a benign seborrheic keratosis. Monitor for for now. documented in this encounter [facility] 12-21-2023 Miscellaneous Notes Iris at Pain Management called and patient has had multiple no shows so they will not be taking her as a patient. documented in this encounter [facility] 12-21-2023 Telephone encounter Note Iris at [facility] called and patient has had multiple no shows so they will not be taking her as a patient. [facility] 11-20-2023 Miscellaneous Notes Has appt 12/27 documented in this encounter [facility] 11-20-2023 Telephone encounter Note Has appt 12/27 [facility] 10-23-2023 History of Presen t illness Narrative Subjective Patient ID: Deshaun Almonte is a 48 y.o. female. Deshaun presents for recheck of hip pain. She had x-rays done. She is using ibuprofen with very minimal benefit. If she takes it to much then she starts having stomach issues. She has not tried Tylenol. It is interfering with her quality of life. If she stands for more than an hour she has excruciating pain. Her feet can swell up as well. She is unable to hold down a job due to the pain. It has been there for at least 4 years and getting progressively worse. She brought in disability forms to see if I would fill out. She is seeing her FLOATING DERRICK OPER[employer] psychologist later tonight. She is also having problems with hot flashes. She was taking Paxil in the past and will discuss this further with her [employer]LOATING [employer] OPER[employer] psychologist. She is taking Adderall XR 10 mg with benefit. His helping her focus but would like to increase the dose more as she still has issues with focusing. 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 The following portions of the patient's history were reviewed and updated as appropriate: allergies, current medications, past family history, past medical history, past social history, past surgical history, problem list, and medication reconciliation was completed including current medication and post discharge medication. Review of Systems Constitutional: Negative. HENT: Negative. Eyes: Negative. Respiratory: Negative. Cardiovascular: Negative. Gastrointestinal: Negative. Endocrine: Hot flashes Genitourinary: Negative. Musculoskeletal: Positive for arthralgias. Neurological: Negative. Psychiatric/Behavioral: Positive for behavioral problems and decreased concentration. Objective Physical Exam Constitutional: General: She is not in acute distress. HENT: Head: Normocephalic. Eyes: Extraocular Movements: Extraocular movements intact. Conjunctiva/sclera: Conjunctivae normal. Cardiovascular: Rate and Rhythm: Normal rate and regular rhythm. Pulses: Normal pulses. Heart sounds: Normal heart sounds. No murmur heard. Pulmonary: Effort: Pulmonary effort is normal. No respiratory distress. Breath sounds: No wheezing, rhonchi or rales. Musculoskeletal: Cervical back: Neck supple. Lymphadenopathy: Cervical: No cervical adenopathy. Neurological: General: No focal deficit present. Mental Status: She is alert and oriented to person, place, and time. Gait: Gait abnormal (slow). Assessment/Plan Deshaun was seen today for arthritis. Diagnoses and all orders for this visit: Attention deficit hyperactivity disorder (ADHD), unspecified ADHD type - amphetamine-dextroamphetamine XR (ADDERALL XR) 15 mg 24 hr capsule; Take 1 capsule (15 mg total) by mouth every morning. Max Daily Amount: 15 mg Patient is been taking Adderall XR 10 mg daily with benefit. It is helping her focus. She has not having any side effects. 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 She is living with her mom. She is trying to get her life in order. She would like to increase it if possible. We will increase it to 15 mg and recheck in 1 month. Primary osteoarthritis of both hips - Ambulatory referral to Pain Management ([facility]); Future Looks like she is moderate to severe osteoarthritis in both hips. Her x-rays were reviewed with her. She is somewhat young for hip replacement. We will refer to pain management for further care. Ibuprofen was minimally effective so we will switch to meloxicam. In his gently around the stomach as well. Perimenopause Labs discussed. Looks like she is in menopause. We discussed different medications for menopause including estrogen, videos and other medications off-label use such as venlafaxine and paroxetine. She is to take paroxetine in the past for anxiety and has some at home. She will discuss this with her psychiatrist and she may decide to restart that. Anxiety Follow up with psychologist as directed. Other orders - meloxicam (MOBIC) 15 mg tablet; Take 1 tablet (15 mg total) by mouth in the morning. As for her disability forms I suggested she discuss that with her psychiatrist as her hip arthritis typically is a temporary problem which can have a permanent fix such as a hip replacement. She may qualify for temporary disability but this condition would not qualify for lifelong disability since it can be successfully treated. I did write a note saying that she can not work currently at stand-up job or a job that requires a lot of walking and she was grateful for that. documented in this encounter [facility] 09-26-2023 History of Presen t illness Narrative Subjective Patient ID: Deshaun Almonte is a 48 y.o. female. Deshaun presents as a new patient. She has several mental health issues. She agrees with anxiety, ADHD and PTSD diagnoses but doesn't feel she has bipolar disease or depression. She is seeing a counselor. She is doing better and doesn't want any medication except she is interested in medication for ADHD. She has trouble focusing. 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 She is living with her mom who is hard of hearing and she has the TV loud. She has 5 children. Her youngest is 14 and she doesn't have custody. Her ex-boyfriend has custody. She is going through menopause. Her periods are irregular and when they come on they are heavy. She would like her hormones checked. She also had a partial thyroidectomy and her BP is low. She feels she needs supplementation. She used to take something but not currently. She is also having b/l hip pain but worse on the right. It gave out recently when she was carrying her grandchild. The following portions of the patient's history were reviewed and updated as appropriate: allergies, current medications, past family history, past medical history, past social history, past surgical history, problem list, and medication reconciliation was completed including current medication and post discharge medication. Review of Systems Constitutional: Negative. HENT: Negative. Eyes: Negative. Respiratory: Negative. Cardiovascular: Negative. Gastrointestinal: Negative. Endocrine: Negative. Genitourinary: Negative. Musculoskeletal: Positive for arthralgias. Skin: Negative. Allergic/Immunologic: Negative. Neurological: Negative. Hematological: Negative. Psychiatric/Behavioral: Positive for decreased concentration. The patient is nervous/anxious. Objective Physical Exam Exam conducted with a plate colorer present (Anselmo Goldman MS III). Constitutional: General: She is not in acute distress. Appearance: She is normal weight. HENT: Head: Normocephalic and atraumatic. Eyes: Extraocular Movements: Extraocular movements intact. Conjunctiva/sclera: Conjunctivae normal. Cardiovascular: Rate and Rhythm: Normal rate and regular rhythm. Pulses: Normal pulses. Heart sounds: Normal heart sounds. No murmur heard. Pulmonary: Effort: Pulmonary effort is normal. No respiratory distress. Breath sounds: Normal breath sounds. No wheezing, rhonchi or rales. Abdominal: General: Bowel sounds are normal. There is no distension. Palpations: Abdomen is soft. There is no mass. Musculoskeletal: Cervical back: Neck supple. Right hip: Tenderness and crepitus present. Decreased range of motion. Right lower leg: No edema. Left lower leg: No edema. Comments: +Alec-Fabere on right Lymphadenopathy: Cervical: No cervical adenopathy. Neurological: General: No focal deficit present. Mental Status: She is alert and oriented to person, place, and time. Gait: Gait abnormal. Psychiatric: Attention and Perception: Attention normal. Mood and Affect: Mood and affect normal. Speech: Speech normal. Behavior: Behavior normal. Behavior is cooperative. Thought Content: Thought content normal. Cognition and Memory: Cognition normal. Judgment: Judgment normal. Assessment/Plan Deshaun was seen today for new patient and annual exam. Diagnoses and all orders for this visit: Well adult health check - Comprehensive metabolic panel; Future - Lipid panel; Future Health maintenance discussed. Vaccines encouraged. Encouraged to quit smoking Perimenopause - FSH; Future - Luteinizing hormone; Future - Estradiol; Future Check hormones Hypothyroidism, unspecified type - TSH; Future Check TSH. May need supplement Attention deficit hyperactivity disorder (ADHD), unspecified ADHD type - amphetamine-dextroamphetamine XR (ADDERALL XR) 10 mg 24 hr capsule; Take 1 capsule (10 mg total) by mouth in the morning. Max Daily Amount: 10 mg. She has a diagnosis of ADHD. It is impairing her quality of life and ability to do ADLs. She would like medication. Risks and benefits of medication discussed. She would like to try. The OARRS/MAPPS database was reviewed today and found to be appropriate. No indication of medication diversion, or non compliance. Right hip pain - X-ray hip right 2-3 views with or without pelvis; Future Check x-ray Encounter for screening mammogram for malignant neoplasm of breast - Mammography screening bilateral with CAD; Future Check mammogram Screen for colon cancer - Cologuard [facility] Check cologuard to screen for colon cancer. She would pursue further evaluation with a colonoscopy Other orders - multivitamin tablet; Take 1 tablet by mouth in the morning. documented in this encounter [facility] 05-04-2023 Hospital Discharg Donna Lackey PA-C - 05/04/2023 6:18 PM EST Please fill, take and complete antibiotics as prescribed Soft diet for comfort. Rinse your mouth with water after eating. Return to the emergency room for increased pain, swelling, difficulty breathing, difficulty swallowing, fever or other emergent concerns [facility] note Diagnosis Pain, dental- Primary Unspecified disorder of the teeth and supporting structures Dental abscess Periapical abscess without sinus Dental caries Unspecified dental caries [facility] Diagnosis Encounter for gynecological examination without abnormal finding- Primary Post-menopausal bleeding Postmenopausal bleeding Primary osteoarthritis of right hip Smoker Tobacco use disorder Epidermoid cyst Sebaceous cyst Skin cancer screening Screening for malignant neoplasm of the skin [facility] Diagnosis Attention deficit hyperactivity disorder (ADHD), unspecified ADHD type [facility] Diagnosis Well adult health check- Primary Unspecified general medical examination Perimenopause Symptomatic menopausal or female climacteric states Hypothyroidism, unspecified type Attention deficit hyperactivity disorder (ADHD), unspecified ADHD type Right hip pain Pain in joint, pelvic region and thigh Encounter for screening mammogram for malignant neoplasm of breast Screen for colon cancer Special screening for malignant neoplasms, colon [facility] Diagnosis Attention deficit hyperactivity disorder (ADHD), unspecified ADHD type- Primary Primary osteoarthritis of both hips Perimenopause Symptomatic menopausal or female climacteric states Anxiety Anxiety state, unspecified [facility] Diagnosis Attention deficit hyperactivity disorder (ADHD), unspecified ADHD type [facility] Diagnosis Attention deficit hyperactivity disorder (ADHD), unspecified ADHD type- Primary Primary osteoarthritis of right hip Inguinal mass Abdominal or pelvic swelling, mass or lump, unspecified site Seborrheic keratosis [facility] Diagnosis Attention deficit hyperactivity disorder (ADHD), unspecified ADHD type [facility] Diagnosis Attention deficit hyperactivity disorder (ADHD), unspecified ADHD type [facility] Diagnosis Attention deficit hyperactivity disorder (ADHD), unspecified ADHD type- Primary Anxiety Anxiety state, unspecified Primary osteoarthritis of right hip [facility] Diagnosis Attention deficit hyperactivity disorder (ADHD), unspecified ADHD type [facility] Diagnosis Attention deficit hyperactivity disorder (ADHD), unspecified ADHD type- Primary Left wrist pain Pain in joint, forearm Anxiety Anxiety state, unspecified Medication monitoring encounter Encounter for therapeutic drug monitoring [facility] Diagnosis Attention deficit hyperactivity disorder (ADHD), unspecified ADHD type [facility] filedocumented in this [facility] filedocumented in this [facility] filedocumented in [facility] filedocumented in this [facility] filedocumented in [facility] filedocumented in this encounter [facility] on filedocumented in this [facility] filedocumented in this encounter [facility] filedocumented in this encounter [facility] filedocumented in this encounter [facility] (narrative)* Consultation (Routine) - Pending Review Specialty Diagnoses / Procedures Referred By Contac t Referred To Contact Pain Medicine Diagnoses Primary osteoarthritis of both hips Bryan Jones, DO [address], [place] [address] Rahul Keys MD [address] [place] [address] Referral ID Status Reason Start Date Expiration Date V isits Requested Visits Authorized [id number] Pending Review 10/23/2023 10/22/2024 1 1 [facility] Summary Purpose Family History No Family History [...] Directives Records FoundNo Advanced Directives Records Found Reason for Referral Specialty Diagnoses / Procedures Referred By Contac t Referred To Contact Diagnoses Attention deficit hyperactivity disorder (ADHD), unspecified ADHD type Bryan Jones, DO [address], [place] [address] Referral ID Status Reason Start Date Expiration Date V isits Requested Visits Authorized [id number] Pending Review 11/21/2023 11/20/2024 1 1 Specialty Diagnoses / Procedures Referred By Contac t Referred To Contact Pain Medicine Diagnoses Primary osteoarthritis of right hip Bryan Jones, DO [address], [place] [address] Sánchez Denis MD [address] [place] [address] Referral ID Status Reason Start Date Expiration Date V isits Requested Visits Authorized [id number] Pending Review 12/28/2023 12/27/2024 1 1 Referral ID Status Reason Start Date Expiration Date Visits Re quested Visits Authorized [id number] Closed 1 1 Additional Source Comments INFORMATION SOURCE (unrecogn ized section and content) DATE CREATED AUTHOR 12/19/2019 [facility] DATE CREATED AUTHOR AUTHOR'S ORGANIZ ATION 05/18/2020 [facility] DATE CREATED AUTHOR AUTHOR'S ORGANIZ ATION 07/07/2022 [facility] DATE CREATED AUTHOR AUTHOR'S ORGANIZ ATION 05/05/[address] [facility] DATE CREATED AUTHOR AUTHOR'S ORGANIZ ATION 08/10/2023 [facility] DATE CREATED AUTHOR AUTHOR'S ORGANIZ ATION 09/28/2023 [facility] DATE CREATED AUTHOR AUTHOR'S ORGANIZ ATION 05/29/2024 [facility] DATE CREATED AUTHOR AUTHOR'S ORGANIZ ATION [facility]2024 [facility] Reason for Visit (unrecogniz ed section and content) Reason Comments Dental Pain Left lower. Pt belie ves she has a cavity. Has been taking advil and oragel Reason Onset Date Comments Med Refill 05/03/2024 Reason Comments Gynecologic Exam Reason Onset Date Comments Med Refill 05/27/2024 Reason Comments New Patient Est care. Right hip pain.Thyroid issues Annual Exam Reason Comments Arthritis Reason Comments Follow-up Reason Onset Date Comments Preventative Screening 01/23/2024 Reason Onset Date Comments Med Refill 01/27/2024 Reason Onset Date Comments Med Refill 02/27/2024 Reason Onset Date Comments Med Refill 02/01/2024 Reason Onset Date Comments Med Refill 03/31/2024 Reason Onset Date Comments Med Refill 07/02/2024 Reason Comments controlled medication/ note to drive/ le ft wrist pain Reason Comments Med Refill Reason Onset Date Comments Med Refill 07/28/2024 Ordered Prescriptions (unrec ognized section and content) [...] Care Teams (unrecognized sec tion and content) Asphalt Paver Relationship Specialty Start Date End Date Bryan Jones DO [address], [place] [address] PCP - General Family Medicine 09/26/23 Asphalt Paver Relationship Specialty Start Date End Date Bryan Jones DO [address], [place] [address] PCP - General Family Medicine 09/26/23 Asphalt Paver Relationship Specialty Start Date End Date Bryan Jones DO [address], [place] [address] PCP - General Family Medicine 09/26/23 Asphalt Paver Relationship Specialty Start Date End Date Bryan Jones DO [address], [place] [address] PCP - General Family Medicine 09/26/23 Asphalt Paver Relationship Specialty Start Date End Date Bryan Jones DO [address] [place] [address] PCP - General Family Medicine 09/26/23 Asphalt Paver Relationship Specialty Start Date End Date Bryan Jones DO [address] [place] [address] PCP - General Family Medicine 09/26/23 Asphalt Paver Relationship Specialty Start Date End Date Bryan Jones DO [address] [place] [address] PCP - General Family Medicine 09/26/23 Asphalt Paver Relationship Specialty Start Date End Date LurdeselzaBryan soares DO [address] [place] [address] PCP - General Family Medicine 09/26/23 Asphalt Paver Relationship Specialty Start Date End Date Bryan Jones DO [address] [place] [address] PCP - General Family Medicine 09/26/23 Asphalt Paver Relationship Specialty Start Date End Date Bryan Jones DO [address] [place] [address] PCP - General Family Medicine 09/26/23 Asphalt Paver Relationship Specialty Start Date End Date LurdeselzaBryan soares DO [address] [place] [address] PCP - General Family Medicine 09/26/23 Asphalt Paver Relationship Specialty Start Date End Date Bryan Jones DO [address], [place] [address] PCP - General Family Medicine 09/26/23 Asphalt Paver Relationship Specialty Start Date End Date Bryan Jones DO [address], [place] [address] PCP - General Family Medicine 09/26/23 Asphalt Paver Relationship Specialty Start Date End Date Bryan Jones DO [address], [place] [address] PCP - General Family Medicine 09/26/23 Asphalt Paver Relationship Specialty Start Date End Date Bryan Jones DO [address], [place] [address] PCP - General Family Medicine 09/26/23 Asphalt Paver Relationship Specialty Start Date End Date Bryan Jones DO [address], [place] [address] PCP - General Family Medicine 09/26/23 FOR [...] BE BASED ON THE PRIMARY CLINICAL RECORDS. [facility]. provides no warranty or guarantee of the accuracy or completeness of information in this document.
== END 2024-08-28 10:33 | disposition home or self-care (01) ==
LOC: RAD 10:45
PROVIDERS: PCP Family Medicine; Visit Provider Family Medicine
DX: M25.532 Pain in left wrist (principal)
CPT/HCPCS: 73110